=== PATIENT | female | born 1950 | race African-American/Black ===

== ENCOUNTER 2017-09-06 17:07 | Inpatient (IN) | payer OTHER ==
[~2017-09-06] VITALS: Ht 157.5 cm; Wt 55.3 kg
--- NOTE | 2017-09-06 17:38 | ED GI/GU/ABDOMINAL COMPLAINT ---
History of Present Illness General Chief Complaint: Nausea, Vomiting, Diarrhea Stated Complaint: VOMITING X 2DAYS, RIB AND BACK PAIN HX OF FRACTURE Source: patient Exam Limitations: no limitations Vital Signs & Intake/Output Vital Signs & Intake/Output Vital Signs Date Time Temp Pulse Resp B/P B/P Pulse O2 O2 Flow FiO2 Mean Ox Delivery Rate 09/06 2242 88 18 132/78 99 Room Air 09/06 1828 97 Room Air 09/06 1719 98.2 114 16 153/83 98 Room Air Room Air Allergies Coded Allergies: No Known Allergies (09/06/17) Reconcile Medications Multiple Vitamin (Multivitamins) 1 EACH TABLET 1 TAB PO DAILY SUPPLEMENT ( Reported) Pantoprazole Sodium 40 MG TABLET.DR 1 TAB PO DAILY GI (Reported) Triage Note: PT TO TRIAGE WITH BILATERAL RIB AND BACK PAIN WITH N/V FOR 3 DAYS. PT HAS HAD CHILLS, BUT DENIES FEVERS. DENIES TROUBLE WITH URIANTION. DENIES SOB, AND IS IN NO RESPIRATORY TROUBLE. PT IS HOLD RIBS AND ROCKING IN TRIAGE STATING PAIN IS 10/10. PT STATES SHE HAS NOT BEEN ABLE TO HOLD DOWN FLUIDS. PT HAS A HX OF PANCEATITIS Triage Nurses Notes Reviewed? yes ? N Is pt currently ? No Onset: Gradual Duration: constant Timing: recent history Quality/Severity: moderate, stabbing Severity Numbers: 6 Location: generalized abdomen Radiation: chest HPI: Patient is a 67-year-old female with a past medical history of pancreatitis due to alcohol abuse where she states last alcoholic beverage was [place] 4 months ago, and GERD who presents emergency room with concerns of nausea and vomiting for the past 3 days unable tolerating by mouth and has associated symptoms of generalized abdominal pain Patient denies fevers but does have chills denies any chest pain arm pain jaw pain hemoptysis leg swelling dysuria hematuria vaginal bleeding or discharge. Patient does state that approximate one year ago she has a history of rib fractures due to a fall which she had a mechanical fall approximately one month ago worse she's been complaining of bilateral rib pain since. Patient has not had a fall SINCE (Altagracia LOPEZ,[place]) Past History Travel History Traveled to [place] past 21 day No Medical History Any Pertinent Medical History? see below for history Neurological: NONE EENT: NONE Cardiovascular: hypertension, hyperlipidemia Respiratory: NONE Gastrointestinal: pancreatitis Hepatic: NONE Renal: NONE Musculoskeletal: RIB FRACTURE Psychiatric: NONE Endocrine: HIGH ANION GAP METABOLIC ACIDOSIS Blood Disorders: HYPOMAGNESEMIA Cancer(s): NONE FLORIST/Reproductive: NONE Surgical History Surgical History: , tubal ligation Psychosocial History What is your primary language Lao Tobacco Use: Current Daily Use Daily Tobacco Use Amount/Type: => 5 Cigarettes daily ETOH Use: alcoholic Family History Hx Contributory? No (Selwyn Gan) Review of Systems Review of Systems Constitutional: Reports: see HPI, chills. Denies: fever. EENTM: Reports: no symptoms. Respiratory: Reports: see HPI. Denies: cough, short of breath. Cardiovascular: Reports: see HPI, chest pain. GI: Reports: see HPI, abdominal pain, vomiting. Genitourinary: Reports: see HPI. Musculoskeletal: Reports: see HPI, back pain. Skin: Reports: no symptoms. Neurological/Psychological: Reports: no symptoms. Hematologic/Endocrine: Reports: no symptoms. Immunologic/Allergic: Reports: no symptoms. All Other Systems: Reviewed and Negative (Selwyn Gan) Physical Exam Physical Exam General Appearance: alert, awake, anxious, mild distress Head: atraumatic Eyes: Bilateral: normal appearance, PERRL. Ears, Nose, Throat, Mouth: hearing grossly normal Neck: normal inspection, supple, full range of motion Respiratory: normal breath sounds, BILATERAL INTERCOSTAL PAIN UPON PALPATION Cardiovascular: regular rate/rhythm Gastrointestinal: tenderness Neurologic/Psych: no motor/sensory deficits, awake Skin: intact, normal color Core Measures ACS in differential dx? Yes Sepsis Present: No Sepsis Focused Exam Completed? No (Selwyn Gan) Progress Differential Diagnosis: AAA, AMI, appendicitis, biliary colic, bowel obstruction , colon cancer, cholecystitis, diverticulitis, endometritis, esophageal varices, gastritis, hepatitis, hernia, hemorrhoids, ischemic bowel, inflamm bowel dis, kidney stone, Nithya-Alexandro tear, ovarian cyst, ovarian torsion, pancreatitis, PID/cervicitis, peptic ulcer, PUD/GERD, perforated viscous, SBO, UTI/pyelo Plan of Care: Orders Procedure Date/time Status Add-on Test (ER Only) 09/06 233 Active LACTIC ACID 09/06 2032 Complete Add-on Test (ER Only) 09/07 2027 Active Add-on Test (ER Only) 09/06 2005 Active LIPID PANEL 09/06 190 Complete RAPID VIRAL INFLUENZA A 09/06 173 Complete URINE DRUG SCREEN FOR ER ONLY 09/06 173 Complete URINALYSIS 09/06 173 Complete TROPONIN LEVEL 09/06 173 Complete LIPASE 09/06 173 Complete ETHANOL 09/06 173 Complete D-DIMER 09/07 1731 Complete COMPREHENSIVE METABOLIC PANEL 09/07 1731 Complete CBC WITHOUT DIFFERENTIAL 09/07 1731 Complete AMYLASE 09/07 1731 Complete EKG 09/06 172 Active Current Medications Sig/Ella Start time Last Medication Dose Stop Time Status Admin Morphine Sulfate 6 MG ONCE ONE 09/06 2344 UNVr 09/06 (Morphine) 09/06 2345 2347 Laboratory Tests 09/06/178: Urine Opiates Screen 3188.00 H, Methadone Screen < 40, Barbiturate Screen < 60, Ur Phencyclidine Scrn < 6.00, Amphetamines Screen < 100, U Benzodiazepines Scrn < 85, Urine Cocaine Screen < 50, Urine Cannabis Screen < 5.00, Urine Color YEL, Urine Clarity CLEAR, Urine pH 6.5, Ur Specific Wood 1.025, Urine Protein 30 H, Urine Ketones >=80, Urine Nitrite NEG, Urine Bilirubin NEG@ICTO, Urine Urobilinogen 0.2, Ur Leukocyte Esterase NEG, Ur Microscopic SEDIMENT EXAMINED, Urine RBC RARE, Urine WBC 1-3 H, Ur Epithelial Cells MOD H, Urine Bacteria FEW H, Hyaline Casts RARE H, Urine Mucus FEW, Micro UA Comment BUDDING YEAST H, Urine Hemoglobin SMALL H, Urine Glucose NEG 09/06/172056: Lactic Acid 0.9 09/06/17 1902: Anion Gap 31 H, Estimated GFR > 60, BUN/Creatinine Ratio 20.0, Glucose 206 H, Calcium 10.1, Total Bilirubin 1.1, AST 40 H, ALT 19, Alkaline Phosphatase 136 H, Troponin I < 0.01, Total Protein 9.1 H, Albumin 5.2 H, Globulin 3.9, Albumin/Globulin Ratio 1.3, Triglycerides 352 H, Cholesterol 295 H, LDL Cholesterol, Calc 115, HDL Cholesterol 142 H, Cholesterol/HDL Ratio 2.1, Amylase 211 H, Lipase 1858 H, Serum Alcohol < 10.0 09/06/17 1745: D-Dimer High Sensitivty 245 H, CBC w Diff NO MAN DIFF REQ, RBC 4.49, MCV 93.3, MCH 30.8, MCHC 33.0, RDW 15.5 H, MPV 8.4, Gran % 82.5 H, Lymphocytes % 9.4 L, Monocytes % 7.9, Eosinophils % 0.2, Basophils % 0, Absolute Granulocytes 9.0 H, Absolute Lymphocytes 1.0 L, Absolute Monocytes 0.9 H, Absolute Eosinophils 0, Absolute Basophils 0 Microbiology 09/06 1750 NASOPHARYN: Influenza Virus A & B Rapid Smear - COMP Patient upon initial examination was in distress and which she had relief of pain with medications however patient does have concerns after blood work was established of pancreatitis. Patient also has nonspecific ST abnormalities and chest pain on arrival. CT scan currently is pending however patient will be admitted for concerns of EKG abnormalities and pancreatitis. Discussed hand off with Dr. Cintron Initial ED EK BPM,NONSPECIFIC ST ELEVATION IN V3,V4 Hand-Off Endorsed To: Krzysztof Cintron MD Endorsed Time: 2058 Pending: CT (Altagracia LOPEZ,[place]) Diagnostic Imaging: Viewed by Me: CT Scan. Discussed w/RAD: CT Scan. Radiology Impression: PATIENT: NEWTON YOUNG PRESENT AGE: 67 PATIENT ACCOUNT NO: [id number] : 51 LOCATION: [facility] [place] ORDERING PHYSICIAN: Selwyn LOPEZ SERVICE DATE: 09/06/17-2035 EXAM TYPE: CAT - CT ABD & PELVIS W IV CONTRAST; CT CHEST W IV CONTRAST EXAMINATION: CT CHEST, ABDOMEN AND PELVIS CLINICAL INFORMATION: Chest pain, abdominal pain. COMPARISON: None TECHNIQUE: Axial imaging. 94 mL Optiray 320. Sagittal and coronal reconstructions. FINDINGS: CT CHEST: Visualized thyroid gland appears unremarkable. No pathologically enlarged lymph nodes are seen in the mediastinum or carroll. Normal caliber aorta. Normal heart size. No pericardial or pleural effusion. No axillary lymphadenopathy. Trachea and central airways are patent. A 5 mm nodule in the right lower lobe image 24. No focal consolidation. No pneumothorax. CT ABDOMEN: Diffuse low attenuation liver compatible with hepatic steatosis. No focal lesions are seen. Gallbladder, bile ducts, appear unremarkable. Pancreas appears unremarkable without acute inflammatory changes. The spleen, adrenal glands unremarkable. Bilateral kidneys are homogeneous enhancement. No suspicious lesions. No calculi. No hydronephrosis. There is colonic diverticulosis. No findings to suggest diverticulitis. Normal caliber small bowel loops without bowel obstruction. The distal stomach is nondistended limiting evaluation. The appendix is not definitely identified, but no pericecal or right side inflammatory changes are seen. Normal caliber aorta. No pathologically enlarged lymph nodes are seen in the abdomen or pelvis. No mesenteric lymph nodes are seen. Small fat-containing umbilical hernia. Uterus is bulky, containing multiple heterogeneous enhancing foci, probable fibroids. No free fluid or free air. Urinary bladder appears unremarkable. Degenerative changes at L4-L5, L5-S1. Multilevel degenerative changes otherwise in the spine. No suspicious bony lesions identified. IMPRESSION: 1. No focal consolidation in the lungs. 2. There is a 5 mm pulmonary nodule. According to the UPDATED 2017 Fleischner Society recommendations, the advised follow-up imaging for solid nodules < 6 mm is: LOW RISK PATIENT: No routine follow-up. HIGH RISK PATIENT: Optional CT at 12 months. 3. Hepatic steatosis. 4. Colonic diverticulosis without evidence of diverticulitis. 5. No acute process is identified in the abdomen or pelvis. 6. Bulky uterus with fibroids. 7. Degenerative changes in the spine. DICTATED BY: Eyad Mosley MD DATE/TIME DICTATED:09/06/172212 PHOTOLITH OPERATOR:REFUGIO DATE/TIME TRANSCRIBED:09/06/172212 CONFIDENTIAL, DO NOT COPY WITHOUT APPROPRIATE AUTHORIZATION. <Electronically signed in Other Vendor System> SIGNED BY: Eyad Mosley MD 09/06/17 8737 (Saida ATKINSON,Krzysztof Avery) Departure Departure Disposition: STILL A PATIENT Condition: Stable Clinical Impression Primary Impression: Pancreatitis Secondary Impressions: Chest pain, EKG abnormalities Departure Forms: Customer Survey General Discharge Information Admission Note Documentation of Exam: Documentation of any treatments & extenuating circumstances including Concerns Regarding Discharge (functional status, medication knowledge or non-compliance, living conditions, etc.) that warrant an admission rather than observation: [ Patient requires pain medication, antiemetic medication gastroenterology consultation cardiology consultation and repeat labs repeat Cardiac enzymes repeat EKG] (Selwyn Gan) Admission Note Spoke With: Severiano ATKINSON,Stef PA/ACCOUNT MANAGER Co-Sign Statement Statement: ED Attending supervision documentation- [x] I saw and evaluated the patient. I have also reviewed all the pertinent lab results and diagnostic results. I agree with the findings and the plan of care as documented in the PA's/ACCOUNT MANAGER's documentation. 09/06/17, 23:40... pt with medical pancreatitis, lipase 1800, benign ct scan... mid epigastric tenderness... merits supportive measures, iv fluids. [] I have reviewed the ED Record and agree with the PA's/ACCOUNT MANAGER's documentation. [] Additions or exceptions (if any) to the PAs/ACCOUNT MANAGER's note and plan are summarized below: [] (Saida ATKINSON,Krzysztof Avery)
[2017-09-06 18:08] LABS: ABSOLUTE BASOPHIL COUNT 0 /CUMM (0.0-0.2); ABSOLUTE EOSINOPHIL COUNT 0 /CUMM (0.0-0.7); ABSOLUTE MONOCYTE COUNT 0.9 /CUMM (0.10-0.60); BASOPHIL % 0 % (0.0-2.0); EOSINOPHIL % 0.2 % (0-5); MEAN CORPUSCULAR HGB 30.8 PG (27.0-31.0); MEAN CORPUSCULAR VOLUME 93.3 FL (81.0-99.0); MEAN PLATELET VOLUME 8.4 FL (7.4-10.4); PLATELET COUNT 188 /CUMM (130-400); RBC DISTRIBUTION WIDTH 15.5 % (11.5-14.5); RED BLOOD CELL CT 4.49 /CUMM (4.20-5.40); WHITE BLOOD CELL COUNT 10.9 /CUMM (4.8-10.8)
[2017-09-06] MEDS ORDERED: PANTOPRAZOLE SO40 M1 PO (18:58)
[2017-09-06] MEDS ORDERED: MULTIVITAMINS1 EAC9 PO (18:59)
[2017-09-06 19:24] LABS: GRANULOCYTE % 82.5 % (42.2-75.2)
--- NOTE | 2017-09-06 22:53 | CT SCAN REPORT ---
EXAMINATION: CT CHEST, ABDOMEN AND PELVIS CLINICAL INFORMATION: Chest pain, abdominal pain. COMPARISON: None TECHNIQUE: Axial imaging. 94 mL Optiray 320. Sagittal and coronal reconstructions. FINDINGS: CT CHEST: Visualized thyroid gland appears unremarkable. No pathologically enlarged lymph nodes are seen in the mediastinum or carroll. Normal caliber aorta. Normal heart size. No pericardial or pleural effusion. No axillary lymphadenopathy. Trachea and central airways are patent. A 5 mm nodule in the right lower lobe image 24. No focal consolidation. No pneumothorax. CT ABDOMEN: Diffuse low attenuation liver compatible with hepatic steatosis. No focal lesions are seen. Gallbladder, bile ducts, appear unremarkable. Pancreas appears unremarkable without acute inflammatory changes. The spleen, adrenal glands unremarkable. Bilateral kidneys are homogeneous enhancement. No suspicious lesions. No calculi. No hydronephrosis. There is colonic diverticulosis. No findings to suggest diverticulitis. Normal caliber small bowel loops without bowel obstruction. The distal stomach is nondistended limiting evaluation. The appendix is not definitely identified, but no pericecal or right side inflammatory changes are seen. Normal caliber aorta. No pathologically enlarged lymph nodes are seen in the abdomen or pelvis. No mesenteric lymph nodes are seen. Small fat-containing umbilical hernia. Uterus is bulky, containing multiple heterogeneous enhancing foci, probable fibroids. No free fluid or free air. Urinary bladder appears unremarkable. Degenerative changes at L4-L5, L5-S1. Multilevel degenerative changes otherwise in the spine. No suspicious bony lesions identified. IMPRESSION: 1. No focal consolidation in the lungs. 2. There is a 5 mm pulmonary nodule. According to the UPDATED 2017 Fleischner Society recommendations, the advised follow-up imaging for solid nodules < 6 mm is: LOW RISK PATIENT: No routine follow-up. HIGH RISK PATIENT: Optional CT at 12 months. 3. Hepatic steatosis. 4. Colonic diverticulosis without evidence of diverticulitis. 5. No acute process is identified in the abdomen or pelvis. 6. Bulky uterus with fibroids. 7. Degenerative changes in the spine.
--- NOTE | 2017-09-07 00:53 | History & Physical ---
Jose Chavarria MD 09/07/17 0052: General Information and HPI MD Statement: I have seen and personally examined NEWTON YOUNG and documented this H&P. The patient is a 67 year old F who presented with a patient stated chief complaint of [abdominal pain, nausea, vomiting]. Source of Information: patient Exam Limitations: no limitations History of Present Illness: Patient is a 67-year-old female with a PMH significant for HTN, HLD, for acute pancreatitis approximately one year ago, GERD, alcohol use disorder last drink to significantly in September 2016 admitted to drinking on 2016 as well, who presents to [facility] ED complaining of severe abdominal pain, nausea, vomiting. Patient was in her usual state of health until about 4 days ago when she suffered a mechanical fall at her home which caused pain in her left-sided ribs. 3 days prior to admission she began noting significant cramping abdominal pain in the epigastric area radiating to her back. She is also unable to tolerate any by mouth intake including water, 6 episodes of emesis daily. The day of admission she noted 2 episodes of bloody emesis, approximately 2 tablespoons of bright red blood. She then proceeded to have regular bilious emesis with no repeat episodes of hematemesis. She rates her abdominal pain and 9/10, was relieved by morphine received in the ED. She also reports mild dysphagia, being unable to swallow a pill of tylenol over the past few days. She denies any diarrhea, melena or bloody bowel movements. The rest of review of systems as below. Allergies/Medications Allergies: Coded Allergies: No Known Allergies (09/06/17) Home Med list Multiple Vitamin (Multivitamins) 1 EACH TABLET 1 TAB PO DAILY SUPPLEMENT ( Reported) Pantoprazole Sodium 40 MG TABLET. 1 TAB PO DAILY GI (Reported) Past History Travel History Traveled to [place] past 21 day No Medical History Neurological: NONE EENT: NONE Cardiovascular: hypertension, hyperlipidemia Respiratory: NONE Gastrointestinal: pancreatitis Hepatic: NONE Renal: NONE Musculoskeletal: RIB FRACTURE Psychiatric: NONE Endocrine: HIGH ANION GAP METABOLIC ACIDOSIS Blood Disorders: HYPOMAGNESEMIA Cancer(s): NONE TUB CHUCKER/Reproductive: NONE Surgical History Surgical History: , tubal ligation Past Family/Social History Family History Relations & Conditions if any MOTHER FHx: stroke FATHER FHx: stroke Psychosocial History Where do you live? Home Who Do You Live With? self Services at Home: None Primary Language: Sami Smoking Status: Current Everyday Smoker (25 pack year hx) ETOH Use: former heavy use Illicit Drug Use: denies illicit drug use Functional Ability ADLs Independent: dressing, eating, toileting, bathing. Ambulation: independent Review of Systems Review of Systems Constitutional: Reports: malaise, weakness. Denies: chills, fever. EENTM: Reports: no symptoms. Cardiovascular: Reports: chest pain (secondary to fall). Denies: palpitations, syncope. Respiratory: Denies: cough, short of breath. GI: Reports: abdominal pain, nausea, vomiting. Denies: bloating, constipation, diarrhea, distention, bloody stool. Genitourinary: Reports: no symptoms. Musculoskeletal: Reports: back pain. Skin: Reports: no symptoms. Neurological/Psychological: Reports: headache. Hematologic/Endocrine: Reports: no symptoms. Exam & Diagnostic Data Last 24 Hrs of Vital Signs/I&O Vital Signs Date Time Temp Pulse Resp B/P B/P Pulse O2 O2 Flow FiO2 Mean Ox Delivery Rate 09/07 0256 97.6 91 24 158/82 97 Room Air 09/07 0215 98.0 80 20 127/86 98 Room Air 09/06 2242 88 18 132/78 99 Room Air 09/06 1828 97 Room Air 09/06 1719 98.2 114 16 153/83 98 Room Air Room Air Intake & Output 09/07 0800 09/07 0000 09/06 1600 Intake Total 1000 Output Total Balance 1000 Intake, IV 1000 Patient 122 lb 122 lb Weight Physical Exam General Appearance Alert, Oriented X3, Cooperative, Moderate Distress Skin Temp/Moisture Exam: Warm/Dry Sepsis Skin Exam (color): Normal for Ethnicity HEENT Atraumatic, PERRLA, EOMI Cardiovascular Regular Rate, Normal S1, Normal S2 Lungs Clear to Auscultation, Normal Air Movement Abdomen Normal Bowel Sounds, diffusely tender to palpation, no guarding or rigidity, multiple areas of post inflammatory hyperpigmentation on the abdomen Neurological Normal Speech, Strength at 5/5 X4 Ext, Sensation Intact, Cranial Nerves 3-12 NL Extremities No Clubbing, No Cyanosis, No Edema Last 24 Hrs of Labs/Emery: Laboratory Tests 09/07/17 0240: Anion Gap 21 H, Estimated GFR > 60, BUN/Creatinine Ratio 20.0 09/06/172127: Urine Opiates Screen 3188.00 H, Methadone Screen < 40, Barbiturate Screen < 60, Ur Phencyclidine Scrn < 6.00, Amphetamines Screen < 100, U Benzodiazepines Scrn < 85, Urine Cocaine Screen < 50, Urine Cannabis Screen < 5.00, Urine Color YEL, Urine Clarity CLEAR, Urine pH 6.5, Ur Specific [place] 1.025, Urine Protein 30 H, Urine Ketones >=80, Urine Nitrite NEG, Urine Bilirubin NEG@ICTO, Urine Urobilinogen 0.2, Ur Leukocyte Esterase NEG, Ur Microscopic SEDIMENT EXAMINED, Urine RBC RARE, Urine WBC 1-3 H, Ur Epithelial Cells MOD H, Urine Bacteria FEW H, Hyaline Casts RARE H, Urine Mucus FEW, Micro UA Comment BUDDING YEAST H, Urine Hemoglobin SMALL H, Urine Glucose NEG 09/06/172056: Lactic Acid 0.9 09/06/171901: Anion Gap 31 H, Estimated GFR > 60, BUN/Creatinine Ratio 20.0, Glucose 206 H, Serum Osmolality 325 H, Calcium 10.1, Total Bilirubin 1.1, AST 40 H, ALT 19, Alkaline Phosphatase 136 H, Troponin I < 0.01, Total Protein 9.1 H, Albumin 5.2 H, Globulin 3.9, Albumin/Globulin Ratio 1.3, Triglycerides 352 H, Cholesterol 295 H, LDL Cholesterol, Calc 115, HDL Cholesterol 142 H, Cholesterol/HDL Ratio 2.1, Amylase 211 H, Lipase 1858 H, Serum Alcohol < 10.0 09/06/17 1745: D-Dimer High Sensitivty 245 H, CBC w Diff NO MAN DIFF REQ, RBC 4.49, MCV 93.3, MCH 30.8, MCHC 33.0, RDW 15.5 H, MPV 8.4, Gran % 82.5 H, Lymphocytes % 9.4 L, Monocytes % 7.9, Eosinophils % 0.2, Basophils % 0, Absolute Granulocytes 9.0 H, Absolute Lymphocytes 1.0 L, Absolute Monocytes 0.9 H, Absolute Eosinophils 0, Absolute Basophils 0 Microbiology 09/06 1750 NASOPHARYN: Influenza Virus A & B Rapid Smear - COMP Diagnostic Data EKG Results NSR HR 90, QTc [address] CHEST: Visualized thyroid gland appears unremarkable. No pathologically enlarged lymph nodes are seen in the mediastinum or carroll. Normal caliber aorta. Normal heart size. No pericardial or pleural effusion. No axillary lymphadenopathy. Trachea and central airways are patent. A 5 mm nodule in the right lower lobe image 24. No focal consolidation. No pneumothorax. CT ABDOMEN: Diffuse low attenuation liver compatible with hepatic steatosis. No focal lesions are seen. Gallbladder, bile ducts, appear unremarkable. Pancreas appears unremarkable without acute inflammatory changes. The spleen, adrenal glands unremarkable. Bilateral kidneys are homogeneous enhancement. No suspicious lesions. No calculi. No hydronephrosis. There is colonic diverticulosis. No findings to suggest diverticulitis. Normal caliber small bowel loops without bowel obstruction. The distal stomach is nondistended limiting evaluation. The appendix is not definitely identified, but no pericecal or right side inflammatory changes are seen. Normal caliber aorta. No pathologically enlarged lymph nodes are seen in the abdomen or pelvis. No mesenteric lymph nodes are seen. Small fat-containing umbilical hernia. Uterus is bulky, containing multiple heterogeneous enhancing foci, probable fibroids. No free fluid or free air. Urinary bladder appears unremarkable. Degenerative changes at L4-L5, L5-S1. Multilevel degenerative changes otherwise in the spine. No suspicious bony lesions identified. IMPRESSION: 1. No focal consolidation in the lungs. 2. There is a 5 mm pulmonary nodule. According to the UPDATED 2017 Fleischner Society recommendations, the advised follow-up imaging for solid nodules < 6 mm is: LOW RISK PATIENT: No routine follow-up. HIGH RISK PATIENT: Optional CT at 12 months. 3. Hepatic steatosis. 4. Colonic diverticulosis without evidence of diverticulitis. 5. No acute process is identified in the abdomen or pelvis. 6. Bulky uterus with fibroids. 7. Degenerative changes in the spine. Assessment/Plan Assessment: Patient is a 67-year-old female with a PMH significant for HTN, HLD, for acute pancreatitis approximately one year ago, GERD, alcohol use disorder last drink to significantly in September 2016 admitted to drinking on 2016 as well, who presents to [facility] ED complaining of severe abdominal pain, nausea, vomiting. CT abdomen pelvis with no abnormalities of the pancreas, hepatic steatosis. Patient has severe abdominal pain nausea and vomiting and elevated lipase and amylase with elevated anion gap acidosis, normal lactic acid. Vital signs on admission: T 98.2, P114, RR 16, BP 130/83, saturating 98% on room air Labs on admission: Sodium 140, CO2 11, glucose 26, serum osmolality 325, corrected anion gap 29, AST 40, alkaline phosphatase 136, total protein of only, albumin 5.2, triglycerides 352, cholesterol 295, amylase 211, lipase 1858, UA: negative for ketones, WBC 1-3, moderate epithelial cells, few bacteria, rare hyaline cast, budding yeast, small hemoglobin Problem list #Acute pancreatitis, BISAP score 1 (age) #Elevated anion gap metabolic acidosis #Hyperlipidemia Plan -Admit to general medicine -Keep nothing by mouth -Aggressive fluid rehydration with lactated Ringer's at 250 ML/hour -Adequate pain management with morphine, IV Tylenol, and gabapentin, consider pain management consult if pain continues to be difficult to control -Follow-up ABG -Continue home PPI -consider swallow eval when she is able to tolerate a diet if she continues to have dysphagia Diet: Nothing by mouth DVT prophylaxis: Subcutaneous heparin, alps CODE STATUS: Full code As Ranked By This Provider Problem List: 1. Pancreatitis Core Measures/Misc (02/22) Acute Coronary Syndrome ACS Diagnosis: No Congestive Heart Failure Congestive Heart Failure Diagnosis No Cerebrovascular Accident CVA/TIA Diagnosis: No VTE (View Protocol) VTE Risk Factors Smoker No Mechanical VTE Prophylaxis d/t N/A MechProphylax Ordered No VTE Pharm Prophylaxis d/t NA PharmProphylax ordered Sepsis (View protocol) Sepsis Present: No Jeannine Piña 09/07/17 0220: Resident Review Statement Resident Statement: examined this patient, discussed with advertising internship, agreed with advertising internship, reviewed EMR data (avail), reviewed images Other Findings: 67-year-old woman, recently moved from [place], current smoker past medical history significant for alcohol abuse, history of acute pancreatitis about a year ago, history of fall 2 weeks ago, coming in for evaluation of nausea vomiting and abdominal pain of 3 days' duration. Abdominal pain is colicky and is bandlike and is radiating to her back bilaterally. Severe today is like 10/10. Associated with up to 10 episodes of vomiting and decreased by mouth intake. Yesterday afternoon she had 2 episodes with minimal blood. Endorses difficulty swallowing pills. Denies fever, chills, shortness of breath, chest pain, diarrhea, constipation, urinary symptoms, gallstones, weight loss or polysubstance abuse. Her last drink was in May. Vitals temperature 98.2, heart rate 114, respiratory rate 16, blood pressure 153 /83, saturating 90% on room air On examination she is visibly uncomfortable, minimal dehydration noted, CVS: S1- S2, respiratory: clear to auscultation, abdomen: distended severe pain to med mild palpation, no peripheral edema. Labs: Done recently 10.9, hemoglobin 13.8, hematocrit 42.0, platelet 188, sodium 148, potassium 4.3, chloride 105, bicarbonate 11, the 114, creatinine 0.7, anion gap 31, d-dimer 245, glucose 206, lactic acid 0.9, calcium 10.1, AST 40, ALT 19, ALP 136, troponin 0.01, triglycerides shoe total cholesterol 295, amylase 211, lipase 1858, UA shows proteinuria with budding yeast, tox significant for opiates CT ABD & PELVIS W IV CONTRAST; CT CHEST W IV CONTRAST IMPRESSION: 1. No focal consolidation in the lungs. 2. There is a 5 mm pulmonary nodule. According to the UPDATED 2017 Fleischner Society recommendations, the advised follow-up imaging for solid nodules < 6 mm is: LOW RISK PATIENT: No routine follow-up. HIGH RISK PATIENT: Optional CT at 12 months. 3. Hepatic steatosis. 4. Colonic diverticulosis without evidence of diverticulitis. 5. No acute process is identified in the abdomen or pelvis. 6. Bulky uterus with fibroids. 7. Degenerative changes in the spine. Assessment and plan: Elevated lipase and abdominal likely mild acute on chronic pancreatitis in the background of alcohol abuse. BISAP score 1Unclear etiology over elevated anion gap metabolic acidosis, as we expect her to have more of an alkalotic picture secondary to her vomiting. Normal lactic acid, no history of diarrhea and no ketonemia to suggest DKA or starvation ketoacidosis. Serum osmolar gap of 13. Per Winter's formula expected compensation is 22.5-26.5, given measured pCO2 is 31 ? primary respiratory acidosis secondary to obstructed airway Problem list: Acute on chronic Pancreatitis (BISAP score 1) Elevated anion gap metabolic acidosis with underlying respiratory acidosis Mild hypernatremia Hyperlipidemia dysphagia Plan: Admit to general medicine floor, keep nothing by mouth, vitals per protocol Continue with Ringer lactate at 250 mL IV PPI Pain control with gabapentin start at 100 mg 3 times a day and titrate upwards as tolerated, IV Tylenol and IV morphine 4 mg every 4 for breakthrough severe pain, some pain seeking behavior noted. Pain management consult. Follow-up morning labs Consider swallow eval once diet is advanced. DVT prophylaxis with subcutaneous heparin Full code Patient has recently moved from [place], will need to be referred to a PCP for continuity care. Stef العلي MD 09/07/17 0425: Attending MD Review Statement Attending Statement Attending MD Statement: examined this patient, discuss w/resident/PA/[employer]SULTANT [employer]NSH[employer], agreed w/resident/PA/[employer], reviewed EMR data (avail) Attending Assessment/Plan: Ms. Young is a 67 y/o female with a history of pancreatitis, current smoker, history of alcohol abuse, apparently has stopped drinking last May, history of fall about couple of weeks ago comes in with complaints of nausea and unable to keep food down with abdominal pain of 2-3 days duration On examination blood pressure 153/83 heart rate of 114, respiratory rate of 16 and saturating 90% on room air. Alert and oriented 3 in no acute distress, oral cavity dry, cardiovascular and respiratory examination unremarkable, abdomen mildly distended diffuse tenderness all over, bowel sounds heard. No focal neurological deficit identified Assessement 1. Acute on chronic pancreatitis 2. History of alcohol abuse 3. Elevated Anion gap metabolic acidosis 4. Dyslipidemia Plan Keep nothing by mouth, IV antiemetics. Continue with IV fluid resuscitation Ringer Lactate at 150 mL an hour after initial rescucitation with 250 cc an hour for 2 liters Patient appears to be mimicking the pain and use more pain medications than necessary. Received 10 mg of morphine and a short duration. Can consider pain management consult Obtain ABG to ascertain the compensation Tylenol IV and Morphine for breakthrough pain Initiate Gabapentin 100 mg TID DVT Prophylaxis with Heparin SC
[2017-09-07 02:56] VITALS: BP 158/82
[2017-09-07 06:20] VITALS: BP 160/80
[2017-09-07 06:35] VITALS: BP 168/84
--- NOTE | 2017-09-07 07:20 | PN- Housestaff ---
See Addendum Subjective Follow-up For: Acute Pancreatitis Subjective: Ms. Santoro was seen and examined this morning. She is resting comfortably in bed. During our initial encounter the patient endorsed abdominal pain rated at a 6 out of 10 in severity. Described as dull radiating to the back. She also reported multiple episodes of eructation and requests us to give her a medication for relief. She denies any fever, chills, nausea, vomiting. States that she feels better compared to her initial presentation clinical condition. Review of Systems Constitutional: Reports: see HPI. Objective Last 24 Hrs of Vital Signs/I&O Vital Signs Date Time Temp Pulse Resp B/P B/P Pulse O2 O2 Flow FiO2 Mean Ox Delivery Rate 09/07 0635 168/84 09/07 0620 98.0 84 20 160/80 97 09/07 0256 97.6 91 24 158/82 97 Room Air 09/07 0215 98.0 80 20 127/86 98 Room Air 09/06 2242 88 18 132/78 99 Room Air 09/06 1828 97 Room Air 09/06 1719 98.2 114 16 153/83 98 Room Air Room Air Intake & Output 09/07 1600 09/07 0800 09/07 0000 Intake Total 760 1000 Output Total Balance 760 1000 Intake, IV 700 1000 Intake, Oral 60 Patient 55.338 kg 55.338 kg Weight Physical Exam General Appearance: Alert, Oriented X3, Cooperative Cardiovascular: Regular Rate, Normal S1, Normal S2 Lungs: Clear to Auscultation, Normal Air Movement Abdomen: Normal Bowel Sounds, Soft, Tenderness noted in the epigastric area. Tenderness noted with light touch to left shoulder/Back Neurological: Normal Gait, Normal Speech Extremities: No Cyanosis, No Edema Vascular: Normal Pulses Assessment/Plan Assessment: Ms Santoro is a 67-year-old female with a PMH significant for HTN, HLD, for acute pancreatitis approximately one year ago, GERD, alcohol use disorder last drink to significantly in September 2016 admitted to drinking on 2016 as well, who presented to [facility] ED complaining of severe abdominal pain, nausea, vomiting. CT abdomen pelvis with no abnormalities of the pancreas, hepatic steatosis. Patient had severe abdominal pain nausea and vomiting and elevated lipase and amylase with elevated anion gap acidosis, normal lactic acid. Vital signs on admission: T 98.2, P114, RR 16, BP 130/83, saturating 98% on room air Labs on admission: Sodium 140, CO2 11, glucose 26, serum osmolality 325, corrected anion gap 29, AST 40, alkaline phosphatase 136, total protein of only, albumin 5.2, triglycerides 352, cholesterol 295, amylase 211, lipase 1858, UA: negative for ketones, WBC 1-3, moderate epithelial cells, few bacteria, rare hyaline cast, budding yeast, small hemoglobin Problem list #Acute pancreatitis, BISAP score 1 (age) #Elecated AG Metabolic Acidosis #Hyperlipidemia #Hypokalemia Plan -Continue on general medicine -Aggressive fluid rehydration with lactated Ringer's at 250 ML/hour, may titrate down based on PO intake. -Adequate pain management with morphine, IV Tylenol, and gabapentin, consider pain management consult if pain continues to be difficult to control -Continue home PPI -Hyoscyamine for symptomatic relief -May consider social work consultation -Will need outpatient referral to a provider at the time of discharge. Diet: Clear Liquids, and screen within normal limits. Formal swallow evaluation results to follow. DVT prophylaxis: Subcutaneous heparin, alps CODE STATUS: Full code Problem List: 1. Pancreatitis Pain Ratin Pain Location: Epigastric Region Pain Goal: Remain pain free Pain Plan: Morphine and Tylenol Tomorrow's Labs & Rationales: No labs needed
[2017-09-07 08:19] LABS: ABSOLUTE BASOPHIL COUNT 0 /CUMM (0.0-0.2); ABSOLUTE EOSINOPHIL COUNT 0.1 /CUMM (0.0-0.7); MEAN PLATELET VOLUME 7.4 FL (7.4-10.4); RBC DISTRIBUTION WIDTH 14.6 % (11.5-14.5)
[2017-09-07 08:26] LABS: ABSOLUTE GRANULOCYTE CT 5.2 /CUMM (1.4-6.5); ABSOLUTE LYMPH COUNT 1.5 /CUMM (1.2-3.4); ABSOLUTE MONOCYTE COUNT 0.6 /CUMM (0.10-0.60); BASOPHIL % 0.1 % (0.0-2.0); EOSINOPHIL % 1.3 % (0-5); GRANULOCYTE % 69.7 % (42.2-75.2); MEAN CORPUSCULAR HGB 31.5 PG (27.0-31.0); MEAN CORPUSCULAR VOLUME 92.4 FL (81.0-99.0); PLATELET COUNT 146 /CUMM (130-400); RED BLOOD CELL CT 3.94 /CUMM (4.20-5.40); WHITE BLOOD CELL COUNT 7.4 /CUMM (4.8-10.8)
[2017-09-07 08:27] LABS: HEMATOCRIT 36.4 % (37-47)
[2017-09-07 15:12] VITALS: BP 140/60
[2017-09-07 21:57] VITALS: BP 146/80
[2017-09-08 06:46] VITALS: BP 128/62
--- NOTE | 2017-09-08 07:15 | PN- Housestaff ---
Adry ATKINSON,[facility] 09/08/17 0715: Subjective Follow-up For: Pancreatitis Subjective: Ms. Santoro was seen and examined this morning. She is resting comfortably in bed. Denies any issues overnight. States that she is able to get some rest. Abdominal pain is better controlled. Abdolutely no flank/shoulder pain. She has been tolerating PO Intake well and is interested in having some solid food notably toast. She denies any fever, chills, nausea, vomiting. Review of Systems Constitutional: Reports: see HPI. Objective Last 24 Hrs of Vital Signs/I&O Vital Signs Date Time Temp Pulse Resp B/P B/P Pulse O2 O2 Flow FiO2 Mean Ox Delivery Rate 09/08 1440 99.1 94 20 124/70 97 Room Air 09/08 0646 99.0 82 20 128/62 96 Room Air 09/07 2157 98.5 73 22 146/80 98 Room Air 09/07 1512 97.9 73 20 140/60 96 Room Air Intake & Output 09/08 1600 09/08 0800 09/08 0000 Intake Total 860 415 0094 Output Total Balance 908 060 0954 Intake, IV 20 430 Intake, Oral 820 120 720 Number 0 0 Bowel Movements Physical Exam General Appearance: Alert, Oriented X3, Cooperative Cardiovascular: Regular Rate, Normal S1, Normal S2 Lungs: Clear to Auscultation Abdomen: Normal Bowel Sounds, Soft, No Tenderness, Mild Tenderness noted on epigastric area Neurological: Normal Speech Extremities: No Cyanosis, No Edema, Normal Pulses Vascular: Normal Pulses Current Medications: Current Medications Sig/Ella Start time Last Medication Dose Route Stop Time Status Admin Acetaminophen 1,000 MG Q6H 09/07 0245 DC 09/07 N/A 1 UNIT IV 09/07 2058 211 Gabapentin 100 MG Q8 09/07 0600 DC PO Heparin Sodium 5,000 UNIT Q8 09/07 0600 AC 09/08 (Porcine) SC 1300 Hyoscyamine 0.125 MG Q4 HRS NEEDED PRN 09/07 0915 AC 09/07 PO 2146 Lactated Ringer's 1,000 ML .Q10H 09/07 1330 DC 09/07 IV 09/07 2329 1342 Morphine Sulfate 4 MG Q4P PRN 09/07 0345 DC 09/08 IV 0627 Multivitamins 1 TAB DAILY 09/07 1000 AC 09/08 Therapeutic PO 0822 Omeprazole 40 MG DAILY AC 09/08 0854 AC PO Ondansetron HCl 4 MG ONCE ONE 09/08 0815 DC 09/08 PO 09/08 0816 0822 Oxycodone/ 1 TAB Q4P PRN 09/08 0900 AC 09/08 Acetaminophen PO 1130 Pantoprazole Sodium 40 MG DAILY 09/07 1000 DC 09/08 IV 0822 Assessment/Plan Assessment: Ms Santoro is a 67-year-old female with a PMH significant for HTN, HLD, for acute pancreatitis approximately one year ago, GERD, alcohol use disorder last drink to significantly in September 2016 admitted to drinking on 2016 as well, who presented [facility] ED complaining of severe abdominal pain, nausea, vomiting. CT abdomen pelvis with no abnormalities of the pancreas, hepatic steatosis. Patient had severe abdominal pain nausea and vomiting and elevated lipase and amylase with elevated anion gap acidosis, normal lactic acid. Vital signs on admission: T 98.2, P114, RR 16, BP 130/83, saturating 98% on room air Labs on admission: Sodium 140, CO2 11, glucose 26, serum osmolality 325, corrected anion gap 29, AST 40, alkaline phosphatase 136, total protein of only, albumin 5.2, triglycerides 352, cholesterol 295, amylase 211, lipase 1858, UA: negative for ketones, WBC 1-3, moderate epithelial cells, few bacteria, rare hyaline cast, budding yeast, small hemoglobin Problem list #Acute pancreatitis, BISAP score 1 (age) #Elecated AG Metabolic Acidosis #Hyperlipidemia #Hypokalemia Plan -Continue on general medicine -Adequate pain management: may convert to Percocet, may consider IV morphine for breakthrough. DC gabapentin. -Continue home PPI -Hyoscyamine for symptomatic relief -Will need outpatient referral to a provider at the time of discharge. -Dc Planning Diet: Clear Liquids, and screen within normal limits. Formal swallow evaluation results to follow. DVT prophylaxis: Subcutaneous heparin, alps CODE STATUS: Full code Problem List: 1. Pancreatitis Pain Ratin Pain Location: Epigastric Area Pain Goal: Remain pain free Pain Plan: Percocet Tomorrow's Labs & Rationales: No Labs - Likely can DC Donny Cerna MD 09/08/17 1128: Attending Review Statement Attending Statement Attending MD Statement: examined this patient, discuss w/resident/PA/RUBBER [employer]ER, agreed w/resident/PA/RUBBER LINER, reviewed EMR data (avail), discussed with nursing, discussed with case mgmt, amended to note Attending Assessment/Plan: The patient was seen and discussed with house staff, nursing, and case management. Abdominal pain continues to improve. No further vomiting. CTPMP checked and the patient has no record of narcotic use. Previous PCP was in [facility]. Tolerating clear liquids and advancing to some solids (ate toast/ oatmeal this morning). Will attempt to transition to po Percocet. Continue to follow pain and GI symptoms.
[2017-09-08 14:40] VITALS: BP 124/70
--- NOTE | 2017-09-08 14:52 | Discharge Summary ---
Visit Information Visit Dates Admission Date: 09/07/17 Discharge Date: 09/10/17 Hospital Course Course Attending Physician: Donny Cerna MD Primary Care Physician: Patient Has No Primary Care Dr Hospital Course: Ms Santoro is a 67-year-old female with a PMH significant for HTN, HLD, for acute pancreatitis approximately one year ago, GERD, alcohol use disorder last drink to significantly in September 2016 admitted to drinking on 2016 as well, who presented to [facility] ED complaining of severe abdominal pain, nausea, vomiting. Vital signs on admission: T 98.2, P114, RR 16, BP 130/83, saturating 98% on room air Labs on admission: Sodium 140, CO2 11, glucose 26, serum osmolality 325, corrected anion gap 29, AST 40, alkaline phosphatase 136, total protein of only, albumin 5.2, triglycerides 352, cholesterol 295, amylase 211, lipase 1858, UA: negative for ketones, WBC 1-3, moderate epithelial cells, few bacteria, rare hyaline cast, budding yeast, small hemoglobin. She was admitted from a general medical service and below is a summary of the care she received her us. Problem list #Acute pancreatitis, BISAP score 1 (age) #Elecated AG Metabolic Acidosis #Hyperlipidemia Patient was initially kept nothing by mouth until her symptoms improved. She was aggressively hydrated with lactated Ringer's. She also complained of eructation and was given Levsin which she reported significant relief. The pain was controlled with a combination of IV morphine and a trial dose of gabapentin (which she did not tolerate well). When she was able to tolerate by mouth intake was switched over to Percocet. A PPI was continued and she was given a renewed prescription for this medication to be continued as an outpatient. She may benefit from being prescribed a statin or lipid-lowering medications.We will defer this to the PCP. CT DESTINATION SPECIALIST was also checked prior to prescribing long-term opioids. Since the patient had just moved to the area from [place] she was given a recommendation to follow-up with her primary care physician in [place]. Patient was maintained on subcutaneous heparin and ALPS for DVT prophylaxis. Initially the patient was kept nothing by mouth and started on a clear liquid diet and after she was able to tolerate this diet this was subsequently advanced to include more solids. She was a full code during this admission. Allergies: Coded Allergies: No Known Allergies (09/06/17) Pertinent Lab Results: Triglycerides 352. Cholesterol 295. LDL 115. HDL 142. Lipase at the time of admission 1858. SERVICE DATE: 09/06/17 EXAM TYPE: CAT - CT ABD & PELVIS W IV CONTRAST; CT CHEST W IV CONTRAST EXAMINATION: CT CHEST, ABDOMEN AND PELVIS CLINICAL INFORMATION: Chest pain, abdominal pain. COMPARISON: None TECHNIQUE: Axial imaging. 94 mL Optiray 320. Sagittal and coronal reconstructions. FINDINGS: CT CHEST: Visualized thyroid gland appears unremarkable. No pathologically enlarged lymph nodes are seen in the mediastinum or carroll. Normal caliber aorta. Normal heart size. No pericardial or pleural effusion. No axillary lymphadenopathy. Trachea and central airways are patent. A 5 mm nodule in the right lower lobe image 24. No focal consolidation. No pneumothorax. CT ABDOMEN: Diffuse low attenuation liver compatible with hepatic steatosis. No focal lesions are seen. Gallbladder, bile ducts, appear unremarkable. Pancreas appears unremarkable without acute inflammatory changes. The spleen, adrenal glands unremarkable. Bilateral kidneys are homogeneous enhancement. No suspicious lesions. No calculi. No hydronephrosis. There is colonic diverticulosis. No findings to suggest diverticulitis. Normal caliber small bowel loops without bowel obstruction. The distal stomach is nondistended limiting evaluation. The appendix is not definitely identified, but no pericecal or right side inflammatory changes are seen. Normal caliber aorta. No pathologically enlarged lymph nodes are seen in the abdomen or pelvis. No mesenteric lymph nodes are seen. Small fat-containing umbilical hernia. Uterus is bulky, containing multiple heterogeneous enhancing foci, probable fibroids. No free fluid or free air. Urinary bladder appears unremarkable. Degenerative changes at L4-L5, L5-S1. Multilevel degenerative changes otherwise in the spine. No suspicious bony lesions identified. IMPRESSION: 1. No focal consolidation in the lungs. 2. There is a 5 mm pulmonary nodule. According to the UPDATED 2017 Fleischner Society recommendations, the advised follow-up imaging for solid nodules < 6 mm is: LOW RISK PATIENT: No routine follow-up. HIGH RISK PATIENT: Optional CT at 12 months. 3. Hepatic steatosis. 4. Colonic diverticulosis without evidence of diverticulitis. 5. No acute process is identified in the abdomen or pelvis. 6. Bulky uterus with fibroids. 7. Degenerative changes in the spine. DICTATED BY: Dimitri ATKINSONEyad Disposition Summary Disposition Principal Diagnosis: #Acute pancreatitis, BISAP score 1 (age) Additional Diagnosis: Elecated AG Metabolic Acidosis Hyperlipidemia Hypokalemia Discharge Disposition: home or self care Discharge Instructions General Discharge Information Code Status: Full Code Patient's Diet: Heart healthy Patient's Activity: As Tolerated Follow-Up Instructions/Appts: Follow-up with her primary care physician within 7 days. We have provide your referral. Please avoid drinking alcohol. Should you re-experience your symptoms, patient return to the emergency department. Medications at Discharge Discharge Medications: Continue taking these medications: Multiple Vitamin (Multivitamins) 1 EACH TABLET 1 Tablet ORAL DAILY Comments: Last Taken:09/10/17 Time:09:41 Start taking the following new medications: Hyoscyamine (Levsin) 0.5 MG/ML AMPUL 0.125 Milligram ORAL EVERY 4 HOURS NEEDED as needed for GI UPSET Qty = 15 No Refills Instructions: . Comments: Last Taken:09/09/17 Time:21:32 Oxycodone HCl/Acetaminophen (Percocet 5-325 MG Tablet) 5 MG-325 MG TABLET 1 Tablet ORAL EVERY 12 HOURS as needed for Abdominal pain Qty = 10 No Refills Comments: Last Taken:09/10/17 Time:01:54 2 TABS GIVEN The following medications have been changed: Old: Pantoprazole Sodium (Pantoprazole Sodium) 40 MG TABLET. 1 Tablet ORAL DAILY Qty = 30 New: Pantoprazole Sodium (Pantoprazole Sodium) 40 MG TABLET.DR 1 Tablet ORAL DAILY Qty = 30 Instructions: . Comments: Last Taken:09/10/17 Time:05:16 OMEPRAZOLE GIVEN Copies To: Oksana ATKINSON,Oksana Attending Review Statement Documenting Attending: Donny Cerna MD Other Findings: The patient was seen and discussed with house staff. OK to discharge today with patient to establish care at Dr. Gandhi's office as PCP.
--- NOTE | 2017-09-08 14:54 | Patient Discharge Instructions ---
Discharge Instructions General Discharge Information You were seen/treated for: Acute Pancreatitis Special Instructions: Follow-up with her primary care physician within 7 days. We have provide your referral. Please avoid drinking alcohol. Should you re-experience your symptoms, patient return to the emergency department. Please follow up with Dr Gandhi. We scheduled you a outpatient appointment on at 10.15 am. Please arrive a few minutes prior to fill out paper work. Thank you. Diet Continue normal diet: Yes Activity Activity Self Limited: Yes (As Tolerated ) Acute Coronary Syndrome Inclusion Criteria At DC or during hospital stay patient has or had the following: ACS DIAGNOSIS No Discharge Core Measures Meds if any: Prescribed or Continued at Discharge Meds if any: NOT Prescribed or Continued at Discharge Congestive Heart Failure Inclusion Criteria At DC or during hospital stay patient has or had the following: CHF DIAGNOSIS No Discharge Core Measures Meds if any: Prescribed or Continued at Discharge Meds if any: NOT Prescribed or Continued at Discharge Cerebrovascular accident Inclusion Criteria At DC or during hospital stay patient has or had the following: CVA/TIA Diagnosis No Discharge Core Measures Meds if any: Prescribed or Continued at Discharge Meds if any: NOT Prescribed or Continued at Discharge Venous thromboembolism Inclusion Criteria VTE Diagnosis No VTE Type NONE VTE Confirmed by (Test) NONE Discharge Core Measures - Per Current guidelines, there needs to be overlap - treatment for the first 5 days of Warfarin therapy. - If discharged on Warfarin prior to 5 days of - overlap therapy, the patient will need to be - assessed for post discharge needs including - *Post discharge parental anticoagulation - *Warfarin and/or parental anticoagulation education - *Follow up date to check INR post discharge At least 5 days overlap therapy as Inpatient No Meds if any: Prescribed or Continued at Discharge Note: Overlap Therapy is Warfarin and Anticoagulant Meds if any: NOT Prescribed or Continued at Discharge
[2017-09-08] MEDS ORDERED: PANTOPRAZOLE SO40 M1 PO (14:55)
[2017-09-08] MEDS ORDERED: LEVSIN0.5 MG/1 M PO (14:55)
[2017-09-08 21:19] VITALS: BP 130/70
[2017-09-09 06:49] VITALS: BP 144/80
--- NOTE | 2017-09-09 07:10 | PN- Housestaff ---
Subjective Follow-up For: Pancreatitis Subjective: Ms Santoro was seen and examined this morning. Resting comfrotably in bed. States pain is better contorlled, although finds that the duration of pain relief is relatively short. She also sates that she experienced pain this morning after eating a few forks of her eggs. Location of the pain was in the epigastric area. She has been able to tolerate toast however with no issues. She denies any fever, chills, nausea or vomiting. Review of Systems Constitutional: Reports: see HPI. Objective Last 24 Hrs of Vital Signs/I&O Vital Signs Date Time Temp Pulse Resp B/P B/P Pulse O2 O2 Flow FiO2 Mean Ox Delivery Rate 09/09 0649 98.2 84 20 144/80 99 Room Air 09/08 2119 99.1 74 20 130/70 95 09/08 1440 99.1 94 20 124/70 97 Room Air Intake & Output 09/09 1600 09/09 0800 09/09 0000 Intake Total 480 900 Output Total Balance 480 900 Intake, Oral 480 900 Physical Exam General Appearance: Alert, Oriented X3, Cooperative Cardiovascular: Regular Rate, Normal S1, Normal S2 Lungs: Clear to Auscultation Abdomen: Normal Bowel Sounds, Soft, No Tenderness Neurological: Normal Speech, Strength at 5/5 X4 Ext Extremities: No Clubbing, No Cyanosis, No Edema Current Medications: Current Medications Sig/Ella Start time Last Medication Dose Route Stop Time Status Admin Heparin Sodium 5,000 UNIT Q8 09/07 0600 AC 09/09 (Porcine) SC 0631 Hyoscyamine 0.125 MG Q4 HRS NEEDED PRN 09/07 0915 AC 09/09 PO 0451 Multivitamins 1 TAB DAILY 09/07 1000 AC 09/09 Therapeutic PO 0755 Omeprazole 40 MG DAILY AC 09/08 0854 AC 09/09 PO 0631 Oxycodone/ 2 TAB Q4-6 PRN PRN 09/09 0900 AC 09/09 Acetaminophen PO 1009 Oxycodone/ 1 TAB Q4P PRN 09/08 0900 DC 09/09 Acetaminophen PO 0452 Assessment/Plan Assessment: Ms Santoro is a 67-year-old female with a PMH significant for HTN, HLD, for acute pancreatitis approximately one year ago, GERD, alcohol use disorder last drink to significantly in September 2016 admitted to drinking on 2016 as well, who presented to ED complaining of severe abdominal pain, nausea, vomiting. CT abdomen pelvis with no abnormalities of the pancreas, hepatic steatosis. Patient had severe abdominal pain nausea and vomiting and elevated lipase and amylase with elevated anion gap acidosis, normal lactic acid. Vital signs on admission: T 98.2, P114, RR 16, BP 130/83, saturating 98% on room air Labs on admission: Sodium 140, CO2 11, glucose 26, serum osmolality 325, corrected anion gap 29, AST 40, alkaline phosphatase 136, total protein of only, albumin 5.2, triglycerides 352, cholesterol 295, amylase 211, lipase 1858, UA: negative for ketones, WBC 1-3, moderate epithelial cells, few bacteria, rare hyaline cast, budding yeast, small hemoglobin Problem list #Acute pancreatitis, BISAP score 1 (age) #Hyperlipidemia Plan -Continue on general medicine -Adequate pain management: may convert to Percocet, may consider IV morphine for breakthrough. DC gabapentin, as the patient did not want to take this medciation. - Increase Percocet to 2 tab Q4-6 PRN, may taper down based on symptoms. -Continue home PPI -Hyoscyamine for symptomatic relief -Will need outpatient referral to a provider at the time of discharge. -Dc Planning Diet: Full liquids for now. DVT prophylaxis: Subcutaneous heparin, alps CODE STATUS: Full code Problem List: 1. Pancreatitis Pain Ratin Pain Location: Epigastric Area Pain Goal: Remain pain free Pain Plan: Percocet Tomorrow's Labs & Rationales: No Labs - will likely be discharged.
[2017-09-09 13:58] VITALS: BP 132/84
[2017-09-09 21:37] VITALS: BP 150/80
[2017-09-10 06:51] VITALS: BP 148/78
--- NOTE | 2017-09-10 06:59 | PN- Housestaff ---
See Addendum Subjective Follow-up For: Pancreatitis Subjective: Ms Santoro was seen and examined this morning resting comfortably in bed. Denies any issues overnight. States that she was able to tolerate by mouth intake. She had a grilled cheese sandwich for supper last night. This morning she has been able to tolerate her breakfast. Denies any fever, chills, nausea, vomiting. States the pain has been much better controlled. Has not needed any medications. Review of Systems Constitutional: Reports: see HPI. Objective Last 24 Hrs of Vital Signs/I&O Vital Signs Date Time Temp Pulse Resp B/P B/P Pulse O2 O2 Flow FiO2 Mean Ox Delivery Rate 09/10 650 98.6 90 18 148/78 97 09/09 2137 99.2 89 18 150/80 98 09/09 1358 98.2 72 18 132/84 97 Room Air Intake & Output 09/10 1600 09/10 0800 09/10 0000 Intake Total 240 480 Output Total Balance 240 480 Intake, Oral 240 480 Physical Exam General Appearance: Alert, Oriented X3, Cooperative Cardiovascular: Normal S1, Normal S2 Lungs: Clear to Auscultation Abdomen: Normal Bowel Sounds, Soft, No Tenderness Neurological: Normal Gait, Normal Speech, Strength at 5/5 X4 Ext Extremities: No Clubbing, No Cyanosis, No Edema Current Medications: Current Medications Sig/Ella Start time Last Medication Dose Route Stop Time Status Admin Heparin Sodium 5,000 UNIT Q8 09/07 0600 AC 09/10 (Porcine) SC 0516 Hyoscyamine 0.125 MG Q4 HRS NEEDED PRN 09/07 0915 AC 09/09 PO 2132 Multivitamins 1 TAB DAILY 09/07 1000 AC 09/09 Therapeutic PO 0755 Omeprazole 40 MG DAILY AC 09/08 0854 AC 09/10 PO 0516 Oxycodone/ 2 TAB Q4-6 PRN PRN 09/09 0900 AC 09/10 Acetaminophen PO 0154 Oxycodone/ 1 TAB Q4P PRN 09/08 0900 DC 09/09 Acetaminophen PO 0452 Patient Medication 1 ED ONE ONE 09/09 1045 DC 09/09 Teaching ED 09/09 1046 1159 Assessment/Plan Assessment: Ms Santoro is a 67-year-old female with a PMH significant for HTN, HLD, for acute pancreatitis approximately one year ago, GERD, alcohol use disorder last drink to significantly in September 2016 admitted to drinking on 2016 as well, who presented to [facility] ED complaining of severe abdominal pain, nausea, vomiting. CT abdomen pelvis with no abnormalities of the pancreas, hepatic steatosis. Patient had severe abdominal pain nausea and vomiting and elevated lipase and amylase with elevated anion gap acidosis, normal lactic acid. Vital signs on admission: T 98.2, P114, RR 16, BP 130/83, saturating 98% on room air Labs on admission: Sodium 140, CO2 11, glucose 26, serum osmolality 325, corrected anion gap 29, AST 40, alkaline phosphatase 136, total protein of only, albumin 5.2, triglycerides 352, cholesterol 295, amylase 211, lipase 1858, UA: negative for ketones, WBC 1-3, moderate epithelial cells, few bacteria, rare hyaline cast, budding yeast, small hemoglobin Problem list #Acute pancreatitis, BISAP score 1 (age) #Hyperlipidemia Plan -Continue on general medicine, consider discharge after morning rounds. -Adequate pain management: may convert to Percocet, may consider IV morphine for breakthrough. DC gabapentin, as the patient did not want to take this medciation. - Continue Percocet to 2 tab Q4-6 PRN, may taper down based on symptoms. -Continue home PPI -Hyoscyamine for symptomatic relief -Will need outpatient referral to a provider at the time of discharge. Diet: Full liquids for now. DVT prophylaxis: Subcutaneous heparin, alps CODE STATUS: Full code Problem List: 1. Pancreatitis Pain Ratin Pain Location: No Pain Pain Goal: Remain pain free Pain Plan: NA Tomorrow's Labs & Rationales: NA
[2017-09-10] MEDS ORDERED: PERCOCET 5-3251 EACH PO (08:18)
[2017-09-10] MEDS ORDERED: LEVSIN0.5 MG/1 M PO (08:20)
[2017-09-10] MEDS ORDERED: PANTOPRAZOLE SO40 M1 PO (08:20)
== END 2017-09-10 11:43 | DRG 439 ==
LOC: ERH 17:07 → ERHI 09-07 01:06 → 2NB 09-07 01:06 → ENRESERV 09-07 02:02 → 2NB 09-07 02:53
PROVIDERS: Internal Medicine; Physician Assistant
DX: K85.90 Acute pancreatitis without necrosis or infection, unspecified (principal); E87.2 Acidosis; E87.0 Hyperosmolality and hypernatremia; K76.0 Fatty (change of) liver, not elsewhere classified; E78.5 Hyperlipidemia, unspecified; R13.10 Dysphagia, unspecified; I10 Essential (primary) hypertension; K86.1 Other chronic pancreatitis; K21.9 Gastro-esophageal reflux disease without esophagitis; K57.30 Diverticulosis of large intestine without perforation or abscess without bleeding; K42.9 Umbilical hernia without obstruction or gangrene; R91.1 Solitary pulmonary nodule; M47.9 Spondylosis, unspecified; F17.200 Nicotine dependence, unspecified, uncomplicated; Z98.51 Tubal ligation status; Z98.890 Other specified postprocedural states
CPT/HCPCS: 2NBP; 36592; 74177; 80307; 81001; 82436; 87804; 87804-59; 93005; 93010; 96374; 96375; 96376; G0480; J0131; J1644; J2405; J3101

== ENCOUNTER 2017-11-28 17:07 | Inpatient (IN) | payer OTHER ==
[~2017-11-28] VITALS: Ht 157.5 cm; Wt 50.5 kg
[~2017-11-28 17:07] MED LIST: LEVSIN0.5 MG/1 M PO; MULTIVITAMINS1 EAC9 PO; PANTOPRAZOLE SO40 M1 PO; PERCOCET 5-3251 EACH PO
--- NOTE | 2017-11-28 17:17 | ED GI/GU/ABDOMINAL COMPLAINT ---
History of Present Illness General Chief Complaint: General Adult Stated Complaint: "CAN'T DIGEST FOOD.VOMITING UP NOTHING" & RIB PAIN Source: patient Exam Limitations: no limitations Vital Signs & Intake/Output Vital Signs & Intake/Output Vital Signs Date Time Temp Pulse Resp B/P B/P Pulse O2 O2 Flow FiO2 Mean Ox Delivery Rate 11/28 1934 98.1 84 18 115/61 100 Room Air 11/28 1725 98.0 102 20 130/85 100 Room Air Allergies Coded Allergies: No Known Allergies (11/28/17) Triage Nurses Notes Reviewed? yes ? N Is pt currently ? No Onset: Gradual Duration: constant Timing: recent history Severity Numbers: 6 Radiation: back HPI: Patient is a 67-year-old female with a past medical history of hypertension hyperlipidemia pancreatitis due to alcohol abuse and GERD who was last admitted in September to [facility] for concerns of acute pancreatitis and EKG abnormalities. Patient states for the past 3 weeks she has had recurrence of drinking alcohol last drink was approximately 3 days ago however patient presents emergency room with a three-day history of epigastric pain with pain that wraps around her chest to her back. Patient is intolerant of by mouth intake. Patient is complaining of generalized weakness and fatigue and headaches. Denies any arm pain jaw pain diaphoresis dysuria hematuria vaginal bleeding or discharge No change in bowel movements Patient states that she ran out of her previously prescribed Protonix and hyoscyamine (Altagracia LOPEZ,Selwyn) Reconcile Medications Folic Acid 1 MG TABLET 1 TAB PO DAILY supplement (Reported) Hyoscyamine (Levsin) 0.5 MG/ML AMPUL 0.125 MG PO Q4 HRS NEEDED PRN GI UPSET . Multiple Vitamin (Multivitamins) 1 EACH TABLET 1 TAB PO DAILY SUPPLEMENT ( Reported) Oxycodone HCl/Acetaminophen (Percocet 5-325 MG Tablet) 5 MG-325 MG TABLET 1 TAB PO Q12 PRN Abdominal pain Pantoprazole Sodium 40 MG TABLET.DR 1 TAB PO DAILY GI . (Marianne ATKINSON,Jose Maki) Past History Travel History Traveled to [place] past 21 day No Medical History Any Pertinent Medical History? see below for history Neurological: NONE EENT: NONE Cardiovascular: hypertension, hyperlipidemia Respiratory: NONE Gastrointestinal: pancreatitis Hepatic: NONE Renal: NONE Musculoskeletal: RIB FRACTURE Psychiatric: NONE Endocrine: HIGH ANION GAP METABOLIC ACIDOSIS Blood Disorders: HYPOMAGNESEMIA Cancer(s): NONE PSYCHIATRIC ASSISTANT/Reproductive: NONE History of MRSA: No History of VRE: No History of CDIFF: No Surgical History Surgical History: , tubal ligation Psychosocial History Services at Home None What is your primary language Senegalese Family History Family History, If Any: MOTHER FHx: stroke FATHER FHx: stroke Hx Contributory? No (Selwyn Gan) Review of Systems Review of Systems Constitutional: Reports: see HPI. EENTM: Reports: no symptoms. Respiratory: Reports: no symptoms. Cardiovascular: Reports: no symptoms. GI: Reports: see HPI. Genitourinary: Reports: no symptoms. Musculoskeletal: Reports: no symptoms. Skin: Reports: no symptoms. Neurological/Psychological: Reports: see HPI, headache. Hematologic/Endocrine: Reports: no symptoms. Immunologic/Allergic: Reports: no symptoms. All Other Systems: Reviewed and Negative (Selwyn Gan) Physical Exam Physical Exam General Appearance: no apparent distress, alert, awake, comfortable Head: atraumatic Eyes: Bilateral: normal appearance, EOMI. Ears, Nose, Throat, Mouth: hearing grossly normal, moist mucous membrane Neck: normal inspection Respiratory: normal breath sounds, chest non-tender, no respiratory distress Cardiovascular: regular rate/rhythm Gastrointestinal: normal bowel sounds, soft, tenderness Back: normal inspection Neurologic/Psych: no motor/sensory deficits, awake, alert Skin: intact, normal color, warm/dry Core Measures ACS in differential dx? No Sepsis Present: No Sepsis Focused Exam Completed? No (Selwyn Gan) Progress Differential Diagnosis: AAA, AMI, appendicitis, biliary colic, bowel obstruction , colon cancer, cholecystitis, diverticulitis, endometritis, esophageal varices, gastritis, hepatitis, hernia, hemorrhoids, ischemic bowel, inflamm bowel dis, kidney stone, Nithya-Alexandro tear, ovarian cyst, ovarian torsion, pancreatitis, PID/cervicitis, peptic ulcer, PUD/GERD, perforated viscous, SBO, UTI/pyelo Plan of Care: Orders Procedure Date/time Status PHOSPHORUS 11/30 06 Active Heart Healthy Diet 11/29 B Active SWALLOW EVALUATION 11/29 0800 Active PHOSPHORUS 11/29 0600 Active MAGNESIUM 11/29 0600 Active CBC WITHOUT DIFFERENTIAL 11/29 0600 Active BASIC ELECTROLYTES PLUS BUN&CR 11/29 0600 Active MAGNESIUM 11/29 0000 Active BASIC ELECTROLYTES PLUS BUN&CR 11/29 0000 Active Clear Liquid Diet 11/28 D Complete Pathway - chart 11/28 2125 Active House Staff 11/28 2125 Active URINALYSIS 11/28 2125 Active Code Status 11/28 2125 Active Add-on Test (ER Only) 11/29 2023 Active Patient Data 11/28 2014 Active ED Holding Orders 11/28 2012 Active Admit to inpatient 11/28 2012 Active Vital Signs 11/28 2012 Active Code Status 11/28 2012 Complete Add-on Test (ER Only) 11/28 1820 Active Intake & Output 11/28 1757 Active PHOSPHORUS 11/28 1747 Complete MAGNESIUM 11/28 1747 Complete LIPID PANEL 11/28 1747 Complete LACTIC ACID 11/28 1719 Complete TROPONIN LEVEL 11/28 1715 Complete LIPASE 11/28 1715 Complete ETHANOL 11/28 1715 Complete D-DIMER 11/28 1715 Complete COMPREHENSIVE METABOLIC PANEL 11/28 1715 Complete CBC WITHOUT DIFFERENTIAL 11/28 1715 Complete EKG 11/28 1714 Active Lab Add-on Test 11/28 UNK Active VTE Mechanical Prophylaxis 11/28 UNK Active MISTAKE 11/28 UNK Active CIWA 11/28 UNK Active Activity/Ambulation 11/28 UNK Active Current Medications Sig/Ella Start time Last Medication Dose Stop Time Status Admin Enoxaparin Sodium 40 MG DAILY 11/29 09 UNVr (Lovenox) Folic Acid 1 MG DAILY 11/29 09 UNVr (Folic Acid) Multivitamins 1 TAB DAILY 11/29 0900 AC (Theragran Vitamins) Nicotine 7 MG Q24 11/29 0900 AC (Nicotine Cq) Pantoprazole Sodium 40 MG BID 11/29 0900 AC (Protonix) Potassium Chloride 40 MEQ ONCE ONE 11/28 2214 UNVr (K-Dur) 11/29 2215 Thiamine HCl 100 MG DAILY 11/28 220 AC (Vitamin B1) Acetaminophen 1,000 MG Q6P PRN 11/28 2129 UNVr (Ofirmev) Cyanocobalamin/ 1 BAG ONCE ONE 11/28 2129 UNVr Thiamine/Pyridoxine 11/29 0529 (Vitamin in I.V.) Dextrose/Water 1,000 ML (D5W 1000) Magnesium Sulfate 1 GM Q2H 11/28 2129 UNVr 11/28 (Mag Sulfate in D5) 11/29 0129 2150 Dextrose/Water 100 ML (D5W) Ondansetron HCl 4 MG Q8P PRN 11/28 2129 AC (Zofran) Oxycodone/ 1 TAB Q12 PRN 11/28 2129 AC Acetaminophen (Percocet) Potassium Chloride 40 MEQ Q10H 11/28 2129 UNVr (KCl 40MEQ in NS 1000ML) Sodium Chloride 1,000 ML (Normal Saline 0.9%) Sodium Chloride 500 ML BOLUS ONE 11/28 2129 UNVr (Normal Saline 0.9%) 11/28 2228 Lorazepam 1 MG BID 11/28 2121 AC (Ativan) Potassium Chloride 40 MEQ ONCE ONE 11/28 1845 AC 11/28 (KCl 40MEQ in NS 11/29 0244 1913 1000ML) Sodium Chloride 1,000 ML (Normal Saline 0.9%) Potassium Chloride 20 MEQ ONCE ONE 11/28 183 CAN (KCl 20MEQ in D5W NS 11/28 1831 1000ML) Sodium Chloride 1,000 ML BOLUS ONE 11/28 1815 CAN (Normal Saline 0.9%) 11/28 191 Laboratory Tests 11/28/17 2019: Lactic Acid Cancelled 11/28/17 1747: Lactic Acid 1.1 11/28/17 1747: Anion Gap 23 H, Estimated GFR > 60, BUN/Creatinine Ratio 10.0, Glucose 103 H, Calcium 9.1, Phosphorus 3.4, Magnesium 1.1 L, Total Bilirubin 0.8, AST 69 H, ALT 42, Alkaline Phosphatase 131 H, Troponin I < 0.01, Total Protein 7.0, Albumin 4.0, Globulin 3.0, Albumin/Globulin Ratio 1.3, Triglycerides 136, Cholesterol 156, LDL Cholesterol, Calc 63 L, HDL Cholesterol 66 H, Cholesterol /HDL Ratio 2.4, Lipase < 10 L, D-Dimer High Sensitivty < 200, CBC w Diff NO MAN DIFF REQ, RBC 3.98 L, MCV 98.2, MCH 32.8 H, MCHC 33.4, RDW 15.0 H, MPV 7.6, Gran % 70.6, Lymphocytes % 17.1 L, Monocytes % 8.6, Eosinophils % 2.6, Basophils % 1.1, Absolute Granulocytes 4.6, Absolute Lymphocytes 1.1 L, Absolute Monocytes 0.6, Absolute Eosinophils 0.2, Absolute Basophils 0.1, Serum Alcohol < 10.0 Patient upon initial presentation is resting complete bedside has diffuse abdominal discomfort however there is subtle T-wave inversions noted from previous EKG that haven't changed and due to patient's hypokalemia admission is warranted. Patient was given supplemental potassium There is CT scan findings for concerns of ileus in which surgery is aware of admission and will consult Discussed admission with patient who agrees and has no questions Diagnostic Imaging: Viewed by Me: CT Scan. Radiology Impression: see comments Initial ED EK BPM SINUS RHYTHM NONSPECIFIC st ABNORMALITIES WITH V3 INVERSION T WAVES WHICH IS NEW Prior EKG: changed Comments: PATIENT: NEWTON YOUNG PRESENT AGE: 67 PATIENT ACCOUNT NO: [id number] : 51 LOCATION: [facility] ORDERING PHYSICIAN: Selwyn LOPEZ SERVICE DATE: 11/28/17 EXAM TYPE: RAD - XRY-CHEST XRAY, TWO VIEWS EXAMINATION: XR CHEST CLINICAL INFORMATION: Chest pain. COMPARISON: None TECHNIQUE: 2 views of the chest were obtained. FINDINGS: No significant abnormality is noted involving the heart, lungs, mediastinum, bony thorax or soft tissues. IMPRESSION: Unremarkable chest examination. DICTATED BY: Ever Hannah MD DATE/TIME DICTATED:11/28/171932 SERVICE STATION MANAGER:REFUGIO DATE/TIME TRANSCRIBED:11/28/171932 (Selwyn Gan) Departure Departure Disposition: STILL A PATIENT Condition: Stable Clinical Impression Primary Impression: Hypokalemia Secondary Impressions: Abdominal pain, EKG abnormalities, Ileus, Metabolic acidosis Referrals: Patient Has No Primary Care Dr (PCP/Family) Departure Forms: Customer Survey General Discharge Information Admission Note Spoke With: Eugenio Silva MD Documentation of Exam: Documentation of any treatments & extenuating circumstances including Concerns Regarding Discharge (functional status, medication knowledge or non-compliance, living conditions, etc.) that warrant an admission rather than observation: [ Patient requires telemetry admission for concerns of hypokalemia potassium supplementation requires repeat EKG repeat labs surgery consultation IV fluids anti-medics gastroenterology consultation] (Selwyn Gan) PA/MOUNTED POLICE OFFICER Co-Sign Statement Statement: ED Attending supervision documentation- [X] I saw and evaluated the patient. I have also reviewed all the pertinent lab results and diagnostic results. I agree with the findings and the plan of care as documented in the PA's/MOUNTED POLICE OFFICER's documentation. [X] I have reviewed the ED Record and agree with the PA's/MOUNTED POLICE OFFICER's documentation. [] Additions or exceptions (if any) to the PAs/MOUNTED POLICE OFFICER's note and plan are summarized below: [Patient to be admitted for intractable vomiting, abdominal pain, hypokalemia with EKG changes. Patient will need potassium replacement, IV fluids, surgical consultation, GI consultation] (Marianne ATKINSON,Jose Maki) Critical Care Note Critical Care Note Critical Care Time: 30-74 min (Altagracia LOPEZ,Selwyn)
[2017-11-28 17:58] LABS: ABSOLUTE BASOPHIL COUNT 0.1 /CUMM (0.0-0.2); ABSOLUTE EOSINOPHIL COUNT 0.2 /CUMM (0.0-0.7); ABSOLUTE GRANULOCYTE CT 4.6 /CUMM (1.4-6.5); ABSOLUTE LYMPH COUNT 1.1 /CUMM (1.2-3.4); ABSOLUTE MONOCYTE COUNT 0.6 /CUMM (0.10-0.60); BASOPHIL % 1.1 % (0.0-2.0); EOSINOPHIL % 2.6 % (0-5); GRANULOCYTE % 70.6 % (42.2-75.2); HEMATOCRIT 39.1 % (37-47); MEAN CORPUSCULAR HGB 32.8 PG (27.0-31.0); MEAN CORPUSCULAR HGB CONC 33.4 G/DL (33.0-37.0); MEAN CORPUSCULAR VOLUME 98.2 FL (81.0-99.0); MEAN PLATELET VOLUME 7.6 FL (7.4-10.4); PLATELET COUNT 266 /CUMM (130-400); RED BLOOD CELL CT 3.98 /CUMM (4.20-5.40); WHITE BLOOD CELL COUNT 6.5 /CUMM (4.8-10.8)
--- NOTE | 2017-11-28 19:37 | RADIOLOGY REPORT ---
EXAMINATION: XR CHEST CLINICAL INFORMATION: Chest pain. COMPARISON: None TECHNIQUE: 2 views of the chest were obtained. FINDINGS: No significant abnormality is noted involving the heart, lungs, mediastinum, bony thorax or soft tissues. IMPRESSION: Unremarkable chest examination.
--- NOTE | 2017-11-28 19:49 | CT SCAN REPORT ---
EXAMINATION: CT ABDOMEN AND PELVIS WITH CONTRAST CLINICAL INFORMATION: Abdominal pain. COMPARISON: None TECHNIQUE: Multidetector volumetric imaging was performed of the abdomen and pelvis following IV administration of 95 mL of Optiray 320 intravenous contrast. Sagittal and coronal reformatted images were obtained on the technologist's workstation. DLP: 264 mGy-cm FINDINGS: LUNG BASES: The visualized lung bases are unremarkable. LIVER, GALLBLADDER, AND BILIARY TREE: The liver is normal in size, shape, and diffuse attenuation. No focal hepatic lesion or biliary ductal dilatation is present. The gallbladder is unremarkable with no evidence of radiopaque gallstones, gallbladder wall thickening, or obvious pericholecystic inflammatory changes. PANCREAS: Unremarkable. SPLEEN: Unremarkable. ADRENAL GLANDS: Unremarkable. KIDNEYS AND URETERS: The kidneys are normal in size, shape, and attenuation. No hydronephrosis, hydroureter, or calculi seen. No perinephric stranding. BLADDER: Unremarkable. GASTROINTESTINAL TRACT: Nondistended colon is noted. There are multiple small small bowel nondistended small air-fluid levels. These are nonspecific. The stomach is nondistended. No free air or free fluid seen. Appendix is not seen with certainty. ABDOMINAL WALL: No significant hernia is appreciated. LYMPH NODES: Normal. VASCULAR: Unremarkable. PELVIC VISCERA: The uterus is anteverted and slightly bulky in the fundal region. This could be secondary to fibroid disease which is not well visualized on this exam. No free fluid. No adnexal mass. No abnormal pelvic lymph nodes seen. OSSEOUS STRUCTURES: There are degenerative disc changes with vacuum disc phenomena L4-L5 disc level. Mild spondylosis seen at L4-L5 disc level. No lytic or sclerotic process is noted. IMPRESSION: Nonspecific small air-fluid levels seen in small bowel. Normal colon and stomach. Question early small bowel ileus. No free air free fluid. Diffuse hepatic steatosis. Slightly bulky uterine fundus. Question fibroid disease. Correlate with ultrasound if clinically indicated.
--- NOTE | 2017-11-28 20:26 | History & Physical ---
AnkushDiallo 11/28/172024: General Information and HPI MD Statement: I have seen and personally examined NEWTON YOUNG and documented this H&P. The patient is a 67 year old F who presented with a patient stated chief complaint of difficulty in swallowing, nausea, abdominal pain and headache []. Source of Information: patient, old records Exam Limitations: no limitations History of Present Illness: 67 YO F, smoker (5-6 cigarettes/d) with a PMH of HTN, HLD, acute pancreatitis, GERD, alcohol abuse and rib fractures came to ED with the chief complaint of difficulty in swelling, nausea, abdominal pain for last 4 days and headache since yesterday. According to patient he was in her usual state of health 3-4 days back when she suddenly noticed having difficulty in swallowing, she tried to take liquid insure milk but she couldn't swallow it. She also reported that she is feeling nauseous and bringing some mucus. Patient also reported that she has abdominal pain, continuous, dull and radiating to lower chest bilaterally. According to the patient she is able to pass gas but she didn't have any bowel movement. Although patient is feeling hungry but she is not able to eat or drink due to difficulty in swallowing. She went to the clinic last week but she was not able to pay the co-pays that's when she came back home. But today she was not able to tolerate anything and she was feeling hungry so she decided to come to ED. According to patient she also reported that she has unintentional 5 pounds of weight loss last couple of weeks. She also reported having headache since yesterday, 03/17, in whole had and also in her eyes and she attributed this to her hunger. She reported that she is drinking alcohol 3-4 shots every day and her last drink was 4 days back. According to patient she started to drink 3 weeks back. She also reported having generalized weakness and feeling dizzy. She denied chest pain, palpitation, vomiting, constipation, diarrhea, loss of consciousness, numbness, tingling, blood in vomitus, black stools, hematuria, rash, tick bite, sick contact, fever, chills and dysuria. According to the patient she had upper GI endoscopy last year in [facility] and that was normal. She was admitted last time in [place] in September 2017 and treated for acute pancreatitis. ED course: Vitals: Temperature 98.0, pulse 102, respiratory rate 20, blood pressure 1:30/85 , oxygen saturation 100% room air Labs: WBC count 6.5, hemoglobin 13.0, hematocrit 39.1, platelet count 266, sodium 140, potassium 2.6, BUN 7, creatinine 0.7, anion gap 23, BUN/creatinine ratio 20.0, glucose 103, calcium 9.1, magnesium 1.1, total bilirubin 0.8, AST 69 , LDL 42, alkaline phosphatase 131, troponin less than 0.01, total protein 7.0, albumin 4.0, lipase less than 10, d-dimer less than 200 Patient received potassium supplementation and normal saline in ED. Allergies/Medications Allergies: Coded Allergies: No Known Allergies (11/28/17) Past History Travel History Traveled to [place] past 21 day No Medical History Neurological: NONE EENT: NONE Cardiovascular: hypertension, hyperlipidemia, PT DENIES HX OF HTN & >CHOL. 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 self Services at Home: None Primary Language: Danish ETOH Use: alcoholic Illicit Drug Use: denies illicit drug use Functional Ability ADLs Independent: dressing, eating, toileting, bathing. Ambulation: independent Review of Systems Review of Systems Constitutional: Reports: weakness. Denies: chills, fever. EENTM: Reports: no symptoms. Cardiovascular: Denies: chest pain, orthopena, palpitations, syncope. Respiratory: Denies: cough, short of breath, sputum production, wheezing. GI: Reports: abdominal pain, nausea. Denies: constipation, distention, bloody stool , vomiting. Genitourinary: Denies: discharge, frequency, hematuria, pain. Musculoskeletal: Reports: see HPI. Skin: Reports: no symptoms. Neurological/Psychological: Reports: headache. Denies: confusion, numbness, tingling. Hematologic/Endocrine: Reports: no symptoms. Exam & Diagnostic Data Last 24 Hrs of Vital Signs/I&O Vital Signs Date Time Temp Pulse Resp B/P B/P Pulse O2 O2 Flow FiO2 Mean Ox Delivery Rate 11/28 1934 98.1 84 18 115/61 100 Room Air 11/28 1725 98.0 102 20 130/85 100 Room Air Physical Exam General Appearance Alert, Oriented X3, Cooperative Skin No Rashes Skin Temp/Moisture Exam: Warm/Dry Sepsis Skin Exam (color): Normal for Ethnicity HEENT Atraumatic, PERRLA, EOMI Neck Supple Cardiovascular Normal S1, Normal S2 Lungs Clear to Auscultation Abdomen Normal Bowel Sounds, Soft, Mild tenderness in epigastrium Neurological Normal Speech, Strength at 5/5 X4 Ext, Normal Tone, Sensation Intact Extremities No Edema Assessment/Plan Assessment: 67 YO F, smoker (5-6 cigarettes/d) with a PMH of HTN, HLD, acute pancreatitis, GERD, alcohol abuse and rib fractures came to ED with the chief complaint of difficulty in swelling, nausea, abdominal pain for last 4 days and headache since yesterday. We will admit the patient on telemetry floor considering her low potassium and nonspecific EKG changes. Hypokalemia with EKG changes: -Her potassium level was 2.6 on admission possibly due to low oral intake and alcohol use. -On admission patient also having nonspecific EKG changes although she is asymptomatic not complaining of any chest pain. We will take part in telemetry floor and watch for any EKG changes. -Potassium supplementation and we will check BEP for potassium again. Alcohol detox: -Patient had last drink 4 days back and she is drinking 3-4 shots every day.. -We will keep the patient on CIWA protocol. -Ativan 11 mg twice a day -Folic acid and vitamin B12 supplementation Dehydration and abdominal pain: -Patient is complaining of abdominal pain, nausea, could be possible due to alcoholic gastritis as she is drinking everyday 3-4 shots. Her lipase is normal to r/o pancreatitis. -We will continue IV pantoprazole -IV zofran as needed for nausea. -Gentle IV hydration with normal saline -We will encourage the patient to take clear liquids by mouth. -GI consult Swelling difficulty: -Patient is complaining of swelling difficulty for last 4 days even with liquids and she has history of smoking and alcohol abuse. -Swallow evaluation in a.m. -We will get the record of last Endoscopy from [facility]. -Considering that patient also reported having unintentional weight loss with risk factors of smoking and alcohol abuse, we will rule out any esophageal lesion. -We will get GI consult Hypomagnesemia: -Possibly due to alcohol abuse -On admission her magnesium was 1.1 -We will replete her magnesium and also check phosphorous. History of smoking: -Smoking cessation counselling. -Nicotine patch as needed History of hypertension and hyperlipidemia: -Patient is not taking any medication for HTN and HLD. DVT prophylaxis: Mechanical and subcutaneous heparin CODE STATUS: DNR/DNI As Ranked By This Provider Problem List: 1. Abdominal pain 2. Hypokalemia 3. Hypomagnesemia 4. Difficulty in swallowing Core Measures/Misc (02/22) Acute Coronary Syndrome ACS Diagnosis: No Congestive Heart Failure Congestive Heart Failure Diagnosis No Cerebrovascular Accident CVA/TIA Diagnosis: No VTE (View Protocol) VTE Risk Factors Age>40 No Mechanical VTE Prophylaxis d/t N/A MechProphylax Ordered No VTE Pharm Prophylaxis d/t NA PharmProphylax ordered Sepsis (View protocol) Sepsis Present: No If YES complete Sepsis Event Note If YES complete Sepsis Event Note Abner Larsen MD 11/28/172040: General Information and HPI Allergies/Medications Home Med list Folic Acid 1 MG TABLET 1 TAB PO DAILY supplement (Reported) Hyoscyamine (Levsin) 0.5 MG/ML AMPUL 0.125 MG PO Q4 HRS NEEDED PRN GI UPSET . Multiple Vitamin (Multivitamins) 1 EACH TABLET 1 TAB PO DAILY SUPPLEMENT ( Reported) Oxycodone HCl/Acetaminophen (Percocet 5-325 MG Tablet) 5 MG-325 MG TABLET 1 TAB PO Q12 PRN Abdominal pain Pantoprazole Sodium 40 MG TABLET. 1 TAB PO DAILY GI . Core Measures/Misc (02/22) Sepsis (View protocol) If YES complete Sepsis Event Note If YES complete Sepsis Event Note Resident Review Statement Other Findings: History of Present Illness 67 year old woman with past medical history of hyperlipidemia, EtOH Abuse, pancreatitis, and chronic pain on percocet seen for evaluation of inability to swallow solids / liquids, nausea, vomiting, and abdominal pain. Patient was previously admitted to [facility] from 09/07/17 - 09/10/17 for evaluation of nausea, vomiting, and diarrhea found to have hypertriglyceridemia and acute pancreatitis. Patient was treated with intravenous fluids and discharged to home. She was lost to follow up in the outpatient medicine clinic as she "couldn't afford it". Patient reports about 4 days about she could "no longer swallow". She couldn't eat solids or liquids stating that they would get "stuck" in her chest. She admits to moderate abdominal with associated nauseated and vomiting of mucous- like material. She has gone from 107 to 102 in the past week. She has not been eating/drinking well due to this despite having a good appetite; she admits to still passing gas. She developed a moderate/severe headache in the past 24 hours that she attributes to hunger and dehydration. She was reportedly admitted to [facility] in "early last year" for similar reasons where an upper endoscopy was performed and reportedly normal. Review of Systems She otherwise denies any fever, chills, blurred / double vision, lightheadedness , chest pain, palpitations, shortness of breath, cough, constipation, urinary complaints. Social History Patient smokes up to 1/2 ppd. She started drinking alcohol again 3 weeks ago, last drink 4 days ago, drinking 3-4 shots of hard liquor each day. She denies any recreational drug use. Objective Vitals Temp 98.0-98.1, HR 84-102, RR 18-20, SBP 115-130, O2 100% on room air Physical Exam -General: well developed, elderly black woman appearing uncomfortable but in no acute distress -HEENT: NCAT, PERRL, EOMI, anicteric sclera -Neck: Supple, no JVD, trachea midline, no accessory respiratory muscle use -Cardio: Normal S1/S2 w/o m/g/r; RRR -Pulm: CTA Bilaterally -Abdomen: Soft, mild/moderate diffuse abdominal tenderness with positive tucker sign without guarding or rigidity, mildly distended, bowel sounds intact -Neuro: Awake and alert, CN II-XII grossly intact -Extremities: normal pulses, no edema Labs / Imaging / Studies -CBC: WBC 6.5, HGB 13.0, HCT 39.1, PLT 266 -BMP: Na 140, K 2.6, Cl 99, CO2 18, BUN 7, Creatinine 0.7, AG 23, Glucose 103 -LFT: AST 69, ALT 42, ALP 131, T. Bili 0.8 -Misc: EtOH < 10, Lipase negative, D-Dimer negative, Magnesium 1.1, Lactic Acid 1.1 -CXR: unremarkable -CT Abdomen / Pelvis with IV contrast: non-specific mulitiple small bowel air fluid levels with questionable early ileus, hepatic steatosis, bulky uterus -EKG 09/06/17: NSR, LVH, Left Atrial abnormalities, Non-specific ST Twave changes in V1 - V3 -EKG 11/28/17: no change from previous Assessment 67 year old woman with multiple medical problems significant for alchol abuse, tobacco use, hyperlipidemia, pancreatitis, and GERD seen for evaluation of inability to swallow solids / liquids, nausea, vomiting, and abdominal pain over the past four days. Presently patient is complaining of her abdominal discomfort and headache but is requesting to eat. Vital signs are within normal limits. Physical examination is significant for mild/moderate diffuse abdominal tenderness without guarding or rigidity but with positive tucker sign and intact bowel sounds. Labs studies were signficant for K 2.6, Mg 1.1, Lactic 1.1, Anion gap 23, and Lipase/EtOH/D- Dimer negative. Chest x-ray is unremarkable. CT Abdomen/Pelvis with contrast found a possible early ileus with several other chronic findings; bile duct appeared normal. EKG has chronic ST T-wave segment changes. Patient received intravenous acetaminophen, IV Normal Saline with KCl, oral KCL, Zofran, Protonix , and Toradol in the ED. Clinically patients decreased oral intake to solids and liquids is concerning for an esophageal dismolity disorder versus obstruction secondary to mass effect ; however patients details regarding her symptoms are vague and she was able to take an oral potassium supplement without issue in the ED. Her abdominal pain is likely due to retching however given her positive tucker sign biliary tree pathology should be considered but is likely as her CBD was normal caliber on CT A/P with relatively normal LFTs; this may need to be further evaluated with abdominal ultrasound versus HIDA. Patient is to be admitted to the telemetry floor for intravenous fluids, telemetry monitoring, electrolyte repleation, and GI / Gen surgery evaluation. Problem list -Dysphagia, abdominal pain, nausea, vomiting; possible gastroenteritis / esophagitis versus esophageal disease -Hypokalemia / hypomagnesemia, likely multifactorial secondary to decreased PO intake, alcohol use, and malnutrition -Anion gap metabolic acidosis -Questionable early ileus -Transaminitis, likely due to alcohol use -History of EtOH Abuse -Current Smoker, 1/2 ppd -History of alcohol / hypertriglyceride induced pancreatitis -GERD -Chronic pain, on percocet Plan -Admit to telemetry floor -playground monitor -CIWA -Check orthostatic blood pressures -NS + 40 mEq KCl @ 125 mL/hr -Protonix 40 mg IV BID -Ativan 1 mg PO BID -Zofran PRN for nausea -Banana bag x1 -Thiamine / Folate / Multivitamin -Magnesium 2 g IV now -Consult with surgery for questionable ileus -Consult with GI for abdominal pain / dysphagia -Obtain records from [facility] -Swallow evaluation +/- modified barium swallow -Monitor serum chemistry and Mag, check again tonight -Check urinalysis, lipid panel -Check Phopshorus now and daily for 2 more days -Pain control with acetaminophen -Clear liquid diet, advance as tolerated -DVT PPx with lovenox -DNR/DNI Eugenio Silva 11/29/17 0131: Core Measures/Misc (02/22) Sepsis (View protocol) If YES complete Sepsis Event Note If YES complete Sepsis Event Note Attending MD Review Statement Attending Statement Attending MD Statement: examined this patient, discuss w/resident/PA/TIRE WRAPPER, agreed w/resident/PA/TIRE WRAPPER, reviewed EMR data (avail), reviewed images, amended to note Attending Assessment/Plan: CC: Nausea vomiting abdominal pain PMH: HTN, GERD, HLD, history of pancreatitis, history of alcoholism Patient came to ER for epigastric abdominal pain radiating to her back 10/10 in intensity since last 4 days, worsened today, improved after coming to ER with associated nausea and several episodes of vomiting with clear vomitus no food or blood. No history of melena or blood in stool. She states that since last 4 days she is unable to swallow anything, food feels stuck in her throat, a lot of secretions in her throat followed by vomiting. She did not have any bowel movement since last 4 days but passing gas. She had history of pancreatitis and this in feels similar to that. She also has history of GERD, was recently seen outpatient and was prescribed medications but it was expensive for her so she has not been taking any of her medications because of cost issues. She drinks 3- 4 shots every day, last drink was 4 days back. She denies any chest pain, chest tightness, shortness of breath, palpitation, loss of consciousness. She has headache otherwise complete ROS unremarkable. Vitals: Temperature 98.0, pulse 102, RR 20, blood pressure 130/85, saturating 100% on room air. On exam: A O 3, cooperative, no acute distress, neck supple, JVD normal, no lymphadenopathy, mucosa dry, no focal neurological deficit, no dependent edema, no obvious skin rashes or inflammation CVS: S1-S2, RRR. RS: Clear to auscultate bilaterally. Abdomen: Soft, NT, ND, bowel sounds hyperactive. CXR: Unremarkable chest examination. CT abdomen pelvis with IV contrast: Nonspecific small air-fluid levels seen in small bowel. Normal colon and stomach. Question early small bowel ileus. No free air free fluid. Diffuse hepatic steatosis. Slightly bulky uterine fundus. Question fibroid disease. Correlate with ultrasound if clinically indicated. Assessment and plan 67-year-old female with above-mentioned past medical history presented in ER for 4 day history of epigastric abdominal pain radiating to back, associated nausea vomiting, nonbilious, nonbloody. Patient feels food stuck in her throat when she eats and has not been able to eat anything since last 4 days. Patient finished a full peanut butter jelly sandwich in ER without any problem and swallowed fine in front of me. She states that he feels much better after coming to ER. She ran out off her medications for GERD, was seen outpatient for the same but could not afford medication so has not been taking her PPI since last few days. She has been drinking 3-4 shots since last 3-4 weeks but last drink was 4 days back. Otherwise complete ROS unremarkable. She appears dehydrated on examination and labs significant for hypokalemia, hypomagnesemia, anion gap metabolic acidosis, mild transaminitis all could be secondary to decreased by mouth intake dehydration and starvation ketosis. She may have gastritis exacerbated by alcohol and not being on PPI which worsened her symptoms. She is symptomatically better after IV hydration, pain medication and Protonix and tolerated food as mentioned above. She has T-wave inversion in V3 V4 compared to her previous ECG. Will watch her on telemetry given the ECG changes and electrolyte imbalance. Her last EGD was 3 years back and has been getting outpatient follow-up when she was in [facility]. CT abdomen shows concern of ileus, patient has hyperactive bowel sounds and this is less likely. + Nausea vomiting probably secondary to gastritis + Hypokalemia + T wave inversion on ECG + Hypomagnesemia + Anion gap metabolic acidosis + Dehydration + Dysphasia + Alcohol dependence - Admit to telemetry - Continuous telemetry monitoring - Serial troponin and ECG, one more set - Replete potassium additionally 40 mEq by mouth, repeat labs in 4 hours - Replete her magnesium - Check phosphate today tomorrow - By mouth thiamine, folic acid - Hydration - Protonix 40 mg IV twice a day - When necessary Zofran - Ativan 1 mg by mouth twice a day, when necessary IV Ativan according to CIWA score - Swallow evaluation - GI consult for dysphasia and abdominal pain with suspected gastritis - DVT prophylaxis
[2017-11-28] MEDS ORDERED: FOLIC ACID1 M1 PO (20:40)
[2017-11-28 21:50] VITALS: BP 100/56
[2017-11-28 22:00] VITALS: BP 100/56
--- NOTE | 2017-11-29 01:33 | Admission Certification ---
Admission Certification Certification Statement - As attending physician, I certify that at the time of - admission, based on clinical presentation, severity of - symptoms, need for further diagnostic testing and - therapeutic interventions, and risk of adverse outcomes - without in-hospital treatment, in my clinical assessment, - this patient requires an acute hospital stay for a minimum - of two nights or longer. I have also considered psychsocial - factors such as support system, advanced age, financial - issues, cognitive issues, and failed out-patient treatments, - past re-admission history, safety of patient, and lack of - compliance as applicable. Specific rationale supporting this admission is: Electrolyte abnormality, ECG changes, abdominal pain
[2017-11-29 06:30] VITALS: BP 100/60
[2017-11-29 07:44] VITALS: BP 100/60
[2017-11-29 08:28] LABS: ABSOLUTE BASOPHIL COUNT 0 /CUMM (0.0-0.2); ABSOLUTE EOSINOPHIL COUNT 0.2 /CUMM (0.0-0.7); ABSOLUTE GRANULOCYTE CT 2.9 /CUMM (1.4-6.5); ABSOLUTE LYMPH COUNT 1.1 /CUMM (1.2-3.4); ABSOLUTE MONOCYTE COUNT 0.5 /CUMM (0.10-0.60); BASOPHIL % 0.9 % (0.0-2.0); EOSINOPHIL % 4.1 % (0-5); GRANULOCYTE % 61.8 % (42.2-75.2); MEAN CORPUSCULAR HGB 33.2 PG (27.0-31.0); MEAN CORPUSCULAR HGB CONC 34.2 G/DL (33.0-37.0); MEAN PLATELET VOLUME 8.4 FL (7.4-10.4); PLATELET COUNT 199 /CUMM (130-400); RBC DISTRIBUTION WIDTH 14.4 % (11.5-14.5); RED BLOOD CELL CT 3.22 /CUMM (4.20-5.40); WHITE BLOOD CELL COUNT 4.7 /CUMM (4.8-10.8)
[2017-11-29 08:56] LABS: HEMATOCRIT 31.2 % (37-47)
--- NOTE | 2017-11-29 14:03 | Cons- Gastroenterology ---
General Information and HPI Consulting Request Date of Consult: 11/29/17 Requested By: Eugenio Silva MD Reason for Consult: 1. Dysphagia 2. ? Ileus 3. Alcohol Abuse Source of Information: patient, Electronic Medical Record Exam Limitations: no limitations History of Present Illness: 67 YO F, PMH significant for a past medical history of alcohol abuse, acute pancreatitis, GERD, hypertension, hyperlipidemia and rib fractures. Patient was admitted with a chief complaint of difficulty in abdominal distention, abdominal pain, nausea, and dysphasia for 4 days. She has been unable to pass gas or have a bowel movement. She also reports that she has been unable to tolerate liquids including Ensure. She has had no vomiting. She has had no fever or shaking chills. She has had no melena nor bright red blood per rectum. Although she has been hungry she has been unable to eat. She has had an unintentional weight loss of 5 pounds over the last couple of weeks. Patient has a history of alcohol abuse and was admitted in September 2017 with acute alcoholic pancreatitis. Patient drinks 3-4 shots of hard liquor daily and has been doing this for the past 4 weeks. Her last drink was 4 days prior to admission. However, she has been binge drinking for most of her adult life. Patient had a CT scan on admission the results are as follows. FINDINGS: LUNG BASES: The visualized lung bases are unremarkable. LIVER, GALLBLADDER, AND BILIARY TREE: The liver is normal in size, shape, and diffuse attenuation. No focal hepatic lesion or biliary ductal dilatation is present. The gallbladder is unremarkable with no evidence of radiopaque gallstones, gallbladder wall thickening, or obvious pericholecystic inflammatory changes. PANCREAS: Unremarkable. SPLEEN: Unremarkable. ADRENAL GLANDS: Unremarkable. KIDNEYS AND URETERS: The kidneys are normal in size, shape, and attenuation. No hydronephrosis, hydroureter, or calculi seen. No perinephric stranding. BLADDER: Unremarkable. GASTROINTESTINAL TRACT: Nondistended colon is noted. There are multiple small small bowel nondistended small air-fluid levels. These are nonspecific. The stomach is nondistended. No free air or free fluid seen. Appendix is not seen with certainty. ABDOMINAL WALL: No significant hernia is appreciated. LYMPH NODES: Normal. VASCULAR: Unremarkable. PELVIC VISCERA: The uterus is anteverted and slightly bulky in the fundal region. This could be secondary to fibroid disease which is not well visualized on this exam. No free fluid. No adnexal mass. No abnormal pelvic lymph nodes seen. OSSEOUS STRUCTURES: There are degenerative disc changes with vacuum disc phenomena L4-L5 disc level. Mild spondylosis seen at L4-L5 disc level. No lytic or sclerotic process is noted. IMPRESSION: Nonspecific small air-fluid levels seen in small bowel. Normal colon and stomach. Question early small bowel ileus. No free air free fluid. Diffuse hepatic steatosis. Slightly bulky uterine fundus. Question fibroid disease. Correlate with ultrasound if clinically indicated. FINDINGS: LUNG BASES: The visualized lung bases are unremarkable. LIVER, GALLBLADDER, AND BILIARY TREE: The liver is normal in size, shape, and diffuse attenuation. No focal hepatic lesion or biliary ductal dilatation is present. The gallbladder is unremarkable with no evidence of radiopaque gallstones, gallbladder wall thickening, or obvious pericholecystic inflammatory changes. PANCREAS: Unremarkable. SPLEEN: Unremarkable. ADRENAL GLANDS: Unremarkable. KIDNEYS AND URETERS: The kidneys are normal in size, shape, and attenuation. No hydronephrosis, hydroureter, or calculi seen. No perinephric stranding. BLADDER: Unremarkable. GASTROINTESTINAL TRACT: Nondistended colon is noted. There are multiple small small bowel nondistended small air-fluid levels. These are nonspecific. The stomach is nondistended. No free air or free fluid seen. Appendix is not seen with certainty. ABDOMINAL WALL: No significant hernia is appreciated. LYMPH NODES: Normal. VASCULAR: Unremarkable. PELVIC VISCERA: The uterus is anteverted and slightly bulky in the fundal region. This could be secondary to fibroid disease which is not well visualized on this exam. No free fluid. No adnexal mass. No abnormal pelvic lymph nodes seen. OSSEOUS STRUCTURES: There are degenerative disc changes with vacuum disc phenomena L4-L5 disc level. Mild spondylosis seen at L4-L5 disc level. No lytic or sclerotic process is noted. IMPRESSION: Nonspecific small air-fluid levels seen in small bowel. Normal colon and stomach. Question early small bowel ileus. No free air free fluid. Diffuse hepatic steatosis. Slightly bulky uterine fundus. Question fibroid disease. Correlate with ultrasound if clinically indicated. Patient is now tolerating a diet. She reports that she also has had several bowel movements. She reports that she has had multiple episodes where she is unable to eat. She points to the cricopharyngeal region where she feels that food gets stuck. However, she currently is no longer having any dysphagia. Allergies/Medications Allergies: Coded Allergies: No Known Allergies (11/28/17) Home Med List: Folic Acid 1 MG TABLET 1 TAB PO DAILY supplement (Reported) Hyoscyamine (Levsin) 0.5 MG/ML AMPUL 0.125 MG PO Q4 HRS NEEDED PRN GI UPSET . Multiple Vitamin (Multivitamins) 1 EACH TABLET 1 TAB PO DAILY SUPPLEMENT ( Reported) Oxycodone HCl/Acetaminophen (Percocet 5-325 MG Tablet) 5 MG-325 MG TABLET 1 TAB PO Q12 PRN Abdominal pain Pantoprazole Sodium 40 MG TABLET.DR 1 TAB PO DAILY GI . Current Medications: Current Medications Sig/Ella Start time Last Medication Dose Route Stop Time Status Admin Acetaminophen 1,000 MG Q6P PRN 11/28 2130 AC IV Acetaminophen 0 .STK-MED ONE 11/28 1824 DC IV Acetaminophen 1,000 MG ONCE ONE 11/[address] 11/28 N/A 1 UNIT IV 11/28 1829 1838 Cyanocobalamin/ 1 BAG ONCE ONE 11/28 2359 DC 11/29 Thiamine/Pyridoxine IV 11/29 0758 0225 Dextrose/Water 1,000 ML Enoxaparin Sodium 40 MG DAILY 11/29 09 AC 11/29 SC 0806 Folic Acid 1 MG DAILY 11/29 0900 AC 11/29 PO 0806 Ketorolac 0 .STK-MED ONE 11/28 2034 DC Tromethamine .ROUTE Ketorolac 15 MG ONCE ONE 11/28 2030 DC 11/28 Tromethamine IV 11/28 Lorazepam 0 .STK-MED ONE 11/28 2206 DC PO Lorazepam 1 MG BID 11/28 2121 AC 11/29 PO 0807 Magnesium Sulfate 1 GM Q2H 11/28 2130 DC 11/29 Dextrose/Water 100 ML IV 11/29 0129 0030 Multivitamins 1 TAB DAILY 11/29 0900 AC 11/29 PO 0806 Nicotine 7 MG Q24 11/29 0900 AC 11/29 TOP 0806 Nystatin 1 SHANTEL BID 11/29 0900 AC 11/29 TOP 1332 Ondansetron HCl 4 MG Q8P PRN 11/28 2130 AC IV Ondansetron HCl 0 .STK-MED ONE 11/28 1825 DC .ROUTE Ondansetron HCl 4 MG ONCE ONE 11/28 1815 DC 11/28 IV 11/28 1816 1838 Oxycodone/ 1 TAB Q12 PRN 11/28 2129 AC Acetaminophen PO Pantoprazole Sodium 40 MG BID 11/29 0900 AC 11/29 IV 0807 Pantoprazole Sodium 0 .STK-MED ONE 11/28 1825 DC IV Pantoprazole Sodium 40 MG ONCE ONE 11/28 1815 DC 11/28 IV 11/28 1816 1838 Potassium Chloride 40 MEQ ONCE ONE 11/28 2215 DC 11/28 PO 11/28 2216 2215 Potassium Chloride 0 .STK-MED ONE 11/28 221 DC PO Potassium Chloride 0 .STK-MED ONE 11/28 2210 DC PO Potassium Chloride 40 MEQ Q10H 11/28 2130 AC 11/29 Sodium Chloride 1,000 ML IV 0806 Potassium Chloride 0 .STK-MED ONE 11/28 1917 DC PO Potassium Chloride 0 .STK-MED ONE 11/28 1913 DC PO Potassium Chloride 40 MEQ ONCE ONE 11/28 1845 DC 11/28 Sodium Chloride 1,000 ML IV 11/29 0244 1913 Potassium Chloride 20 MEQ ONCE ONE 11/28 1830 CAN IV 11/28 1831 Potassium Chloride 40 MEQ ONCE ONE 11/28 1830 DC 11/28 PO 11/28 1831 1927 Sodium Chloride 500 ML BOLUS ONE 11/28 2130 DC 11/28 IV 11/28 2229 2209 Sodium Chloride 1,000 ML BOLUS ONE 11/28 1815 CAN IV 11/28 191 Thiamine HCl 100 MG DAILY 11/28 220 AC 11/29 PO 0806 Past History Travel History Traveled to [place] past 21 day No Medical History Blood Transfusion Hx: No Neurological: NONE EENT: NONE Cardiovascular: hypertension, hyperlipidemia, PT DENIES HX OF HTN & >CHOL. 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 self Services at Home: None Primary Language: Vietnamese Smoking Status: Current Everyday Smoker ETOH Use: alcoholic Illicit Drug Use: denies illicit drug use Functional Ability ADLs Independent: dressing, eating, toileting, bathing. Ambulation: independent Review of Systems Review of Systems Constitutional: Reports: no symptoms. EENTM: Reports: no symptoms. Cardiovascular: Reports: no symptoms. Respiratory: Reports: no symptoms. GI: Reports: see HPI. Genitourinary: Reports: no symptoms. Musculoskeletal: Reports: no symptoms. Skin: Reports: no symptoms. Neurological/Psychological: Reports: no symptoms. Hematologic/Endocrine: Reports: no symptoms. Exam & Diagnostic Data Vital Signs and I&O Vital Signs Date Time Temp Pulse Resp B/P B/P Pulse O2 O2 Flow FiO2 Mean Ox Delivery Rate 11/29 0744 75 100/60 11/29 0630 97.7 75 20 100/60 96 11/28 2255 Room Air 11/28 2200 97.8 81 18 100/56 100 Room Air 11/28 2150 97.8 81 18 100/56 11/28 2150 97.8 81 18 100/56 100 Room Air 11/28 1935 98.1 84 18 115/61 100 Room Air 11/28 1725 98.0 102 20 130/85 100 Room Air Intake & Output 11/29 1600 11/29 0400 11/28 1600 11/28 0400 11/27 1600 11/27 0400 Intake Total 1570 720 Output Total Balance 1570 720 Intake, IV 1350 500 Intake, Oral 220 220 Number 1 Bowel Movements Patient 105 lb 105 lb Weight Weight Bed scale Bed scale Measurement Method Physical Exam General Appearance: no apparent distress, alert Head: atraumatic, normal appearance Eyes: Bilateral: normal appearance. Ears, Nose, Throat: normal pharynx, hearing grossly normal Neck: normal inspection, supple Respiratory: normal breath sounds, chest non-tender, no respiratory distress, lungs clear Cardiovascular: regular rate/rhythm, Normal S1 and S2 without Rub, Murmur or Gallop Gastrointestinal: normal bowel sounds, soft, non-tender, no organomegaly Extremities: normal inspection Neurologic/Psych: awake, alert, oriented x 3 Skin: normal color, warm/dry Results Pertinent Lab Results: Laboratory Tests 11/29 11/29 0920 0640 Chemistry Sodium (137 - 145 mmol/L) 138 Potassium (3.5 - 5.1 mmol/L) 4.3 Chloride (98 - 107 mmol/L) 109 H Carbon Dioxide (22 - 30 mmol/L) 19 L Anion Gap (5 - 16) 11 BUN (7 - 17 mg/dL) 7 Creatinine (0.5 - 1.0 mg/dL) 0.6 Estimated GFR (>60 ml/min) > 60 BUN/Creatinine Ratio (7 - 25 %) 11.7 Phosphorus (2.5 - 4.5 mg/dL) 2.0 L Magnesium (1.6 - 2.3 mg/dL) 2.0 Hematology CBC w Diff NO MAN DIFF REQ WBC (4.8 - 10.8 /CUMM) 4.7 L RBC (4.20 - 5.40 /CUMM) 3.22 L Hgb (12.0 - 16.0 G/DL) 10.7 L Hct (37 - 47 %) 31.2 L MCV (81.0 - 99.0 FL) 97.0 MCH (27.0 - 31.0 PG) 33.2 H MCHC (33.0 - 37.0 G/DL) 34.2 RDW (11.5 - 14.5 %) 14.4 Plt Count (130 - 400 /CUMM) 199 MPV (7.4 - 10.4 FL) 8.4 Gran % (42.2 - 75.2 %) 61.8 Lymphocytes % (20.5 - 51.1 %) 22.5 Monocytes % (1.7 - 9.3 %) 10.7 H Eosinophils % (0 - 5 %) 4.1 Basophils % (0.0 - 2.0 %) 0.9 Absolute Granulocytes (1.4 - 6.5 /CUMM) 2.9 Absolute Lymphocytes (1.2 - 3.4 /CUMM) 1.1 L Absolute Monocytes (0.10 - 0.60 /CUMM) 0.5 Absolute Eosinophils (0.0 - 0.7 /CUMM) 0.2 Absolute Basophils (0.0 - 0.2 /CUMM) 0 Urines Urine Color (YEL,AMB,STR) YEL Urine Clarity (CLEAR) HAZY H Urine pH (5.0 - 8.0) 6.5 Ur Specific [place] (1.001 - 1.035) 1.010 Urine Protein (NEG,<30 MG/DL) TRACE H Urine Ketones (NEG) TRACE H Urine Nitrite (NEG) NEG Urine Bilirubin (NEG) NEG@ICTO Urine Urobilinogen (0.1 - 1.0 EU/dl) 1.0 Ur Leukocyte Esterase (NEG) NEG Ur Microscopic SEDIMENT EXAMINED Urine RBC (0 - 5 /HPF) RARE Urine WBC (0 - 2 /HPF) RARE Ur Epithelial Cells (NONE,FEW) MANY H Urine Bacteria (NEG/NONE) FEW H Micro UA Comment BUDDING YEAST H Urine Hemoglobin (NEG) NEG Urine Glucose (N MG/DL) NEG 11/29 Chemistry Sodium (137 - 145 mmol/L) 137 Potassium (3.5 - 5.1 mmol/L) 4.3 Chloride (98 - 107 mmol/L) 108 H Carbon Dioxide (22 - 30 mmol/L) 18 L Anion Gap (5 - 16) 12 BUN (7 - 17 mg/dL) 7 Creatinine (0.5 - 1.0 mg/dL) 0.7 Estimated GFR (>60 ml/min) > 60 BUN/Creatinine Ratio (7 - 25 %) 10.0 Lactic Acid (0.7 - 2.1 mmol/L) Cancelled 1.1 Magnesium (1.6 - 2.3 mg/dL) 1.6 11/28 1746 Chemistry Sodium (137 - 145 mmol/L) 140 Potassium (3.5 - 5.1 mmol/L) 2.6 *L Chloride (98 - 107 mmol/L) 99 Carbon Dioxide (22 - 30 mmol/L) 18 L Anion Gap (5 - 16) 23 H BUN (7 - 17 mg/dL) 7 Creatinine (0.5 - 1.0 mg/dL) 0.7 Estimated GFR (>60 ml/min) > 60 BUN/Creatinine Ratio (7 - 25 %) 10.0 Glucose (65 - 99 mg/dL) 103 H Calcium (8.4 - 10.2 mg/dL) 9.1 Phosphorus (2.5 - 4.5 mg/dL) 3.4 Magnesium (1.6 - 2.3 mg/dL) 1.1 L Total Bilirubin (0.2 - 1.3 mg/dL) 0.8 AST (14 - 36 U/L) 69 H ALT (9 - 52 U/L) 42 Alkaline Phosphatase (<127 U/L) 131 H Troponin I (< 0.11 ng/ml) < 0.01 Total Protein (6.3 - 8.2 g/dL) 7.0 Albumin (3.5 - 5.0 g/dL) 4.0 Globulin (1.9 - 4.2 gm/dL) 3.0 Albumin/Globulin Ratio (1.1 - 2.2 %) 1.3 Triglycerides (<150 mg/dL) 136 Cholesterol (<200 MG/DL) 156 LDL Cholesterol, Calc (65 - 129 mg/dL) 63 L HDL Cholesterol (40 - 60 mg/dL) 66 H Cholesterol/HDL Ratio (0.00 - 4.23 %) 2.4 Lipase (23 - 300 U/L) < 10 L Coagulation D-Dimer High Sensitivty (0 - 243 ng/ml) < 200 Hematology CBC w Diff NO MAN DIFF REQ WBC (4.8 - 10.8 /CUMM) 6.5 RBC (4.20 - 5.40 /CUMM) 3.98 L Hgb (12.0 - 16.0 G/DL) 13.0 Hct (37 - 47 %) 39.1 MCV (81.0 - 99.0 FL) 98.2 MCH (27.0 - 31.0 PG) 32.8 H MCHC (33.0 - 37.0 G/DL) 33.4 RDW (11.5 - 14.5 %) 15.0 H Plt Count (130 - 400 /CUMM) 266 MPV (7.4 - 10.4 FL) 7.6 Gran % (42.2 - 75.2 %) 70.6 Lymphocytes % (20.5 - 51.1 %) 17.1 L Monocytes % (1.7 - 9.3 %) 8.6 Eosinophils % (0 - 5 %) 2.6 Basophils % (0.0 - 2.0 %) 1.1 Absolute Granulocytes (1.4 - 6.5 /CUMM) 4.6 Absolute Lymphocytes (1.2 - 3.4 /CUMM) 1.1 L Absolute Monocytes (0.10 - 0.60 /CUMM) 0.6 Absolute Eosinophils (0.0 - 0.7 /CUMM) 0.2 Absolute Basophils (0.0 - 0.2 /CUMM) 0.1 Toxicology Serum Alcohol (<10 MG/DL) < 10.0 Assessment/Plan Assessment/Recommendations: IMPRESSION: 1. Alcohol Abuse 2. Dysphagia 3. Abnormal CT Scan of the Abdomen and Pelvis -- Findings are non-specific and not consistent with significant ileus or pseudo-obstruction 4. Hepatic Steatosis -- likely related to alcohol abuse 5. Drop in H/H -- ? PUD, ? erosive esophagitis. No signs of underlying cirrhosis with normal albumin and platelets RECOMMENDATIONS: 1. NPO after midnight 2. EGD tomorrow. Risks and benefits discussed with patient who is eager to have EGD because she is concerned about the possibility of esophageal cancer. 3. Continue Protonix 4. Obtain liver-associated enzymes, albumin, coags (PT/INR) as well as calcium if one is concerned both about ongoing alcohol abuse as well as possible ileus Consult Acknowledgment - Thank you for your consult request.
[2017-11-29 14:26] VITALS: BP 98/60
--- NOTE | 2017-11-29 15:17 | PN- Att Addend ---
Attending Addendum Attending Brief Note 67F PMH HTN, GERD, HLD, history of pancreatitis, history of alcoholism admitted for intractable epigastric pain and esophageal dysphagia, with recent history of alcohol abuse. Patient reports having been worked up for her dysphagia on several occasions, last EGD 3 years ago, has had esophograms and barium swallows before. She was able to tolerate PO today without vomiting and feels much better than yesterday. The sticky feeling in her chest is improving. She reports having difficulty obtaining her medications due to not having Medicaid. Potassium and magnesium have normalized. 13 point ROS negative AFVSS NAD NCAT MMM Supple RRR CTAB Soft, NTND No c/c/e Pulses intact A&Ox3 no focal deficits Current Medications Sig/Ella Start time Last Medication Dose Route Stop Time Status Admin Acetaminophen 1,000 MG Q6P PRN 11/280 AC IV Acetaminophen 0 .STK-MED ONE 11/28 1824 DC IV Acetaminophen 1,000 MG ONCE ONE 11/28 1815 DC 11/28 N/A 1 UNIT IV 11/28 1829 1838 Cyanocobalamin/ 1 BAG ONCE ONE 11/28 2359 DC 11/29 Thiamine/Pyridoxine IV 11/29 0758 0225 Dextrose/Water 1,000 ML Enoxaparin Sodium 40 MG DAILY 11/29 09 AC 11/29 SC 0806 Folic Acid 1 MG DAILY 11/29 09 AC 11/29 PO 0806 Ketorolac 0 .STK-MED ONE 11/28 2034 DC Tromethamine .ROUTE Ketorolac 15 MG ONCE ONE 11/28 2030 DC 11/28 Tromethamine IV 11/28 Lorazepam 0 .STK-MED ONE 11/28 2206 DC PO Lorazepam 1 MG BID 11/28 2121 AC 11/29 PO 0807 Magnesium Sulfate 1 GM Q2H 11/28 2130 DC 11/29 Dextrose/Water 100 ML IV 11/29 0129 0030 Multivitamins 1 TAB DAILY 11/29 09 AC 11/29 PO 0806 Nicotine 7 MG Q24 11/29 0900 AC 11/29 TOP 0806 Nystatin 1 SHANTEL BID 11/29 0900 AC 11/29 TOP 1332 Ondansetron HCl 4 MG Q8P PRN 11/28 2130 AC IV Ondansetron HCl 0 .STK-MED ONE 11/28 1825 DC .ROUTE Ondansetron HCl 4 MG ONCE ONE 11/28 1815 DC 11/28 IV 11/28 1816 1838 Oxycodone/ 1 TAB Q12 PRN 11/28 2129 AC Acetaminophen PO Pantoprazole Sodium 40 MG BID 11/29 0900 AC 11/29 IV 0807 Pantoprazole Sodium 0 .STK-MED ONE 11/28 1825 DC IV Pantoprazole Sodium 40 MG ONCE ONE 11/28 181 DC 11/28 IV 11/28 181 1838 Potassium Chloride 40 MEQ ONCE ONE 11/28 221 DC 11/28 PO 11/28 221 221 Potassium Chloride 0 .STK-MED ONE 11/28 221 DC PO Potassium Chloride 0 .STK-MED ONE 11/28 2210 DC PO Potassium Chloride 40 MEQ Q10H 11/28 213 AC 11/29 Sodium Chloride 1,000 ML IV 08 Potassium Chloride 0 .STK-MED ONE 11/28 1917 DC PO Potassium Chloride 0 .STK-MED ONE 11/28 1913 DC PO Potassium Chloride 40 MEQ ONCE ONE 11/28 1845 DC 11/28 Sodium Chloride 1,000 ML IV 11/29 0244 1913 Potassium Chloride 20 MEQ ONCE ONE 11/28 1830 CAN IV 11/28 1831 Potassium Chloride 40 MEQ ONCE ONE 11/28 1830 DC 11/28 PO 11/28 1831 1927 Sodium Chloride 500 ML BOLUS ONE 11/28 2129 DC 11/28 IV 11/28 2229 2209 Sodium Chloride 1,000 ML BOLUS ONE 11/28 1815 CAN IV 11/28 1914 Thiamine HCl 100 MG DAILY 11/28 2199 AC 11/29 PO 0806 Laboratory Tests 11/29 11/29 0920 0640 Chemistry Sodium (137 - 145 mmol/L) 138 Potassium (3.5 - 5.1 mmol/L) 4.3 Chloride (98 - 107 mmol/L) 109 H Carbon Dioxide (22 - 30 mmol/L) 19 L Anion Gap (5 - 16) 11 BUN (7 - 17 mg/dL) 7 Creatinine (0.5 - 1.0 mg/dL) 0.6 Estimated GFR (>60 ml/min) > 60 BUN/Creatinine Ratio (7 - 25 %) 11.7 Phosphorus (2.5 - 4.5 mg/dL) 2.0 L Magnesium (1.6 - 2.3 mg/dL) 2.0 Hematology CBC w Diff NO MAN DIFF REQ WBC (4.8 - 10.8 /CUMM) 4.7 L RBC (4.20 - 5.40 /CUMM) 3.22 L Hgb (12.0 - 16.0 G/DL) 10.7 L Hct (37 - 47 %) 31.2 L MCV (81.0 - 99.0 FL) 97.0 MCH (27.0 - 31.0 PG) 33.2 H MCHC (33.0 - 37.0 G/DL) 34.2 RDW (11.5 - 14.5 %) 14.4 Plt Count (130 - 400 /CUMM) 199 MPV (7.4 - 10.4 FL) 8.4 Gran % (42.2 - 75.2 %) 61.8 Lymphocytes % (20.5 - 51.1 %) 22.5 Monocytes % (1.7 - 9.3 %) 10.7 H Eosinophils % (0 - 5 %) 4.1 Basophils % (0.0 - 2.0 %) 0.9 Absolute Granulocytes (1.4 - 6.5 /CUMM) 2.9 Absolute Lymphocytes (1.2 - 3.4 /CUMM) 1.1 L Absolute Monocytes (0.10 - 0.60 /CUMM) 0.5 Absolute Eosinophils (0.0 - 0.7 /CUMM) 0.2 Absolute Basophils (0.0 - 0.2 /CUMM) 0 Urines Urine Color (YEL,AMB,STR) YEL Urine Clarity (CLEAR) HAZY H Urine pH (5.0 - 8.0) 6.5 Ur Specific [place] (1.001 - 1.035) 1.010 Urine Protein (NEG,<30 MG/DL) TRACE H Urine Ketones (NEG) TRACE H Urine Nitrite (NEG) NEG Urine Bilirubin (NEG) NEG@ICTO Urine Urobilinogen (0.1 - 1.0 EU/dl) 1.0 Ur Leukocyte Esterase (NEG) NEG Ur Microscopic SEDIMENT EXAMINED Urine RBC (0 - 5 /HPF) RARE Urine WBC (0 - 2 /HPF) RARE Ur Epithelial Cells (NONE,FEW) MANY H Urine Bacteria (NEG/NONE) FEW H Micro UA Comment BUDDING YEAST H Urine Hemoglobin (NEG) NEG Urine Glucose (N MG/DL) NEG 11/29 174 Chemistry Sodium (137 - 145 mmol/L) 137 Potassium (3.5 - 5.1 mmol/L) 4.3 Chloride (98 - 107 mmol/L) 108 H Carbon Dioxide (22 - 30 mmol/L) 18 L Anion Gap (5 - 16) 12 BUN (7 - 17 mg/dL) 7 Creatinine (0.5 - 1.0 mg/dL) 0.7 Estimated GFR (>60 ml/min) > 60 BUN/Creatinine Ratio (7 - 25 %) 10.0 Lactic Acid (0.7 - 2.1 mmol/L) Cancelled 1.1 Magnesium (1.6 - 2.3 mg/dL) 1.6 11/28 1747 Chemistry Sodium (137 - 145 mmol/L) 140 Potassium (3.5 - 5.1 mmol/L) 2.6 *L Chloride (98 - 107 mmol/L) 99 Carbon Dioxide (22 - 30 mmol/L) 18 L Anion Gap (5 - 16) 23 H BUN (7 - 17 mg/dL) 7 Creatinine (0.5 - 1.0 mg/dL) 0.7 Estimated GFR (>60 ml/min) > 60 BUN/Creatinine Ratio (7 - 25 %) 10.0 Glucose (65 - 99 mg/dL) 103 H Calcium (8.4 - 10.2 mg/dL) 9.1 Phosphorus (2.5 - 4.5 mg/dL) 3.4 Magnesium (1.6 - 2.3 mg/dL) 1.1 L Total Bilirubin (0.2 - 1.3 mg/dL) 0.8 AST (14 - 36 U/L) 69 H ALT (9 - 52 U/L) 42 Alkaline Phosphatase (<127 U/L) 131 H Troponin I (< 0.11 ng/ml) < 0.01 Total Protein (6.3 - 8.2 g/dL) 7.0 Albumin (3.5 - 5.0 g/dL) 4.0 Globulin (1.9 - 4.2 gm/dL) 3.0 Albumin/Globulin Ratio (1.1 - 2.2 %) 1.3 Triglycerides (<150 mg/dL) 136 Cholesterol (<200 MG/DL) 156 LDL Cholesterol, Calc (65 - 129 mg/dL) 63 L HDL Cholesterol (40 - 60 mg/dL) 66 H Cholesterol/HDL Ratio (0.00 - 4.23 %) 2.4 Lipase (23 - 300 U/L) < 10 L Coagulation D-Dimer High Sensitivty (0 - 243 ng/ml) < 200 Hematology CBC w Diff NO MAN DIFF REQ WBC (4.8 - 10.8 /CUMM) 6.5 RBC (4.20 - 5.40 /CUMM) 3.98 L Hgb (12.0 - 16.0 G/DL) 13.0 Hct (37 - 47 %) 39.1 MCV (81.0 - 99.0 FL) 98.2 MCH (27.0 - 31.0 PG) 32.8 H MCHC (33.0 - 37.0 G/DL) 33.4 RDW (11.5 - 14.5 %) 15.0 H Plt Count (130 - 400 /CUMM) 266 MPV (7.4 - 10.4 FL) 7.6 Gran % (42.2 - 75.2 %) 70.6 Lymphocytes % (20.5 - 51.1 %) 17.1 L Monocytes % (1.7 - 9.3 %) 8.6 Eosinophils % (0 - 5 %) 2.6 Basophils % (0.0 - 2.0 %) 1.1 Absolute Granulocytes (1.4 - 6.5 /CUMM) 4.6 Absolute Lymphocytes (1.2 - 3.4 /CUMM) 1.1 L Absolute Monocytes (0.10 - 0.60 /CUMM) 0.6 Absolute Eosinophils (0.0 - 0.7 /CUMM) 0.2 Absolute Basophils (0.0 - 0.2 /CUMM) 0.1 Toxicology Serum Alcohol (<10 MG/DL) < 10.0 Vital Signs Date Time Temp Pulse Resp B/P B/P Pulse O2 O2 Flow FiO2 Mean Ox Delivery Rate 11/29 1426 98.4 87 18 98/60 99 Room Air 11/29 0744 75 100/60 11/29 0630 97.7 75 20 100/60 96 11/28 2255 Room Air 11/28 2200 97.8 81 18 100/56 100 Room Air 11/28 2150 97.8 81 18 100/56 11/280 97.8 81 18 100/56 100 Room Air 11/28 1935 98.1 84 18 115/61 100 Room Air 11/28 1725 98.0 102 20 130/85 100 Room Air Intake & Output 11/29 1600 11/29 0800 11/29 0000 Intake Total 1400 1570 720 Output Total Balance 1400 1570 720 Intake, IV 1050 1350 500 Intake, Oral 350 220 220 Number 1 Bowel Movements Patient 47.429 kg 47.429 kg Weight Weight Bed scale Bed scale Measurement Method 1. Esophageal dysphagia 2. Intractable epigastric pain 3. Malnutrition and dehydration 4. Hypokalemia (resolved) 5. Hypomagnesemia (resolved) 6. Alcohol abuse disorder 7. Acute EKG changes Plan - Continue on telemetry - Repeat EKG - Cardiology consult - Continue current diet - Speech therapy evaluation - Continue Protonix - Ativan PRN CIWA, no evidence of withdrawal so no standing dose - Continue home medications - DVT PPx
[2017-11-29 18:12] LABS: PT 15.2 SEC (9.4-12.5)
[2017-11-29 22:07] VITALS: BP 96/58
[2017-11-30 06:58] VITALS: BP 94/54
--- NOTE | 2017-11-30 07:29 | PN- Housestaff ---
Jason ATKINSON,Abbi 11/30/17 0729: Subjective Follow-up For: -Dysphagia, abdominal pain, nausea, vomiting; possible gastroenteritis / esophagitis versus esophageal disease -Hypokalemia / hypomagnesemia, likely multifactorial secondary to decreased PO intake, alcohol use, and malnutrition -Anion gap metabolic acidosis -Questionable early ileus -Transaminitis, likely due to alcohol use -History of EtOH Abuse -Current Smoker, 1/2 ppd -History of alcohol / hypertriglyceride induced pancreatitis -GERD -Chronic pain, on percocet Tele-Events Since Last Visit: No overnight events Subjective: Patient was seen and examined, blood pressure running low 94/51, CIWA 0, she is n.p.o. for EGD today, denies any complaints Review of Systems Constitutional: Reports: see HPI. Objective Last 24 Hrs of Vital Signs/I&O Vital Signs Date Time Temp Pulse Resp B/P B/P Pulse O2 O2 Flow FiO2 Mean Ox Delivery Rate 11/30 1000 72 11/30 0800 97.7 82 18 11/30 0800 99 Room Air 11/30 0658 97.7 82 18 94/54 99 Room Air 11/29 2207 97.9 80 18 96/58 98 Room Air 11/29 1426 98.4 87 18 98/60 99 Room Air Intake & Output 11/30 1600 11/30 0800 11/30 0000 Intake Total 700 480 Output Total 400 Balance 300 480 Intake, IV 700 300 Intake, Oral 180 Number 1 Bowel Movements Output, Urine 400 Patient 117 lb Weight Weight Bed scale Measurement Method Physical Exam General Appearance: Alert, Oriented X3, Cooperative, No Acute Distress HEENT: Atraumatic, PERRLA, EOMI Cardiovascular: Normal S1, Normal S2 Lungs: Clear to Auscultation Abdomen: Normal Bowel Sounds, Soft, No Tenderness Neurological: Normal Speech, Strength at 5/5 X4 Ext, Normal Tone, Sensation Intact, Cranial Nerves 3-12 NL Extremities: No Clubbing, No Cyanosis, No Edema Assessment/Plan Assessment: 67 YO F, smoker (5-6 cigarettes/d) with a PMH of HTN, HLD, acute pancreatitis, GERD, alcohol abuse and rib fractures came to ED with the chief complaint of difficulty in swelling, nausea, abdominal pain for last 4 days and headache since yesterday. 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 -Swallow evaluation +/- modified barium swallow -Monitor serum chemistry and Mag, -Pain control with acetaminophen -N.p.o. for EGD, will advance his diet after worst as tolerated -DVT PPx with lovenox -DNR/DNI Problem List: 1. Difficulty in swallowing Pain Ratin Pain Location: BODY ACHES Pain Goal: Pain 4 or less Pain Plan: PATHWAY Tomorrow's Labs & Rationales: CBC BEP Yasmeen Bojorquez 11/30/17 1144: Attending MD Review Statement Attending Statement Attending MD Statement: examined this patient, discuss w/resident/PA/BASE PLY HAND, agreed w/resident/PA/BASE PLY HAND, discussed with family, reviewed EMR data (avail), discussed with nursing, discussed with case mgmt, reviewed images, amended to note Attending Assessment/Plan: 67 o/f with pmh of alcohol abuse comes with c/o dyphagia and abdominal discomfort in epigastric region. Patient is for planned EGD today as per GI. She is NPO and can advacne diet if ok with GI. Contniue current care
[2017-11-30 08:02] LABS: ABSOLUTE BASOPHIL COUNT 0 /CUMM (0.0-0.2); ABSOLUTE EOSINOPHIL COUNT 0.1 /CUMM (0.0-0.7); ABSOLUTE GRANULOCYTE CT 3.3 /CUMM (1.4-6.5); ABSOLUTE LYMPH COUNT 0.7 /CUMM (1.2-3.4); ABSOLUTE MONOCYTE COUNT 0.4 /CUMM (0.10-0.60); BASOPHIL % 0.6 % (0.0-2.0); GRANULOCYTE % 71.6 % (42.2-75.2); HEMATOCRIT 32.2 % (37-47); MEAN CORPUSCULAR HGB 33.2 PG (27.0-31.0); MEAN CORPUSCULAR HGB CONC 33.7 G/DL (33.0-37.0); MEAN CORPUSCULAR VOLUME 98.7 FL (81.0-99.0); MEAN PLATELET VOLUME 8.9 FL (7.4-10.4); PLATELET COUNT 175 /CUMM (130-400); RBC DISTRIBUTION WIDTH 14.9 % (11.5-14.5); RED BLOOD CELL CT 3.27 /CUMM (4.20-5.40); WHITE BLOOD CELL COUNT 4.6 /CUMM (4.8-10.8)
--- NOTE | 2017-11-30 12:03 | Proc Note Endoscopy ---
Endoscopy Procedure Medical History: unchanged Mental Status: alert/oriented Heart/Lung Eval Prior to Sedation: within normal limits Candidate for Sedation? Yes Procedure Date: 11/30/17 Procedure Type: EGD w/biopsy [employer] Director: Yasmeen Bojorquez MD ASA Classification: III Indications: 1. Dysphasia 2. Epigastric pain Instrument: diagnostic gastroscope Meds Received: MAC Patient's Tolerance: good Complications: none Extent Reached: second part of duodenum Procedure: Note: Informed consent was obtained prior to procedure. Risks and benefits of procedure were discussed with patient. Potential complications discussed included perforation, bleeding, abdominal pain, and adverse reaction to medications. It was explained that iany or all of these complications could result in the need for extended hospitalization, emergency surgery, transfusion of packed red blood cells (with the risk of HIV or hepatitis virus), intubation with mechanical ventilation, and possible need for antibiotics. It was further explained that an existing tumor polyp or mucosal abnormality might not be identified at the time of the procedure thus resulting in a missed opportunity for early diagnosis and treatment of a gastrointestinal malignancy or disease with possible interval development of a gastrointestinal cancer or other disease with possible worsening of clinical condition in the interval between endoscopies. It was also discussed that complications are not limited to those listed above. Possible alternatives to endoscopic treatment or evaluation were discussed. All questions were answered. Continuous EKG and blood pressure monitors were attached. Supplemental oxygen was provided with O2 Sat monitoring. Patient was placed in the left lateral decubitus position. A surgical timeout was performed. All persons in the room were identified. All concerns were expressed and answered. A bite block was placed in the mouth and sedation was administered by anesthesia and titrated to comfort prior to starting the procedure. The Olympus upper endoscope was advanced under direct vision to the level of the third portion of the duodenum. Esophagus: The esophagus had a normal mucosal vascular pattern throughout its entirety. The GE junction was identified and was normal. The Z line was located at would a 2 cm from the incisors and was nondisplaced. There was evidence of esophageal dyskinesia. The esophagus had a somewhat corkscrew pattern consistent with presbyesophagus. There were no esophageal varices noted. Stomach: The stomach had linear erosions with erythema and wagon-wheel configuration within the antrum and distal body. There were scattered aphthous ulcers as well.. Retroflexed view of the cardiofundic region revealed diffuse edema and nodularity. Multiple biopsies were obtained from this area. Nodularity extended into the proximal body.. There were normal rugae and normal distensibility. The pylorus was patent and easily intubated. Biopsies were obtained from the antrum, angularis, gastric body and lesser curvature to rule out H. Pylori. Duodenum: The duodenum was fully examined from bulb down to the third portion. There was nonspecific edema throughout. With the endoscope in the forward-viewing position, it was slowly withdrawn and all areas were re-inspected and findings are as described previously. Patient tolerated the procedure well. EBL: Minimal Specimens Removed: 1. Antrum, angularis, gastric body and lesser curvature to rule out H. Pylori. 2. Nodularity gastric body and fundus. Findings: 1. Antral gastritis with erosion and aphthous ulceration 2. Nodular gastritis of the fundus and distal gastric body 3. Presbyesophagus Impression: 1. Antral gastritis with erosion and aphthous ulceration 2. Nodular gastritis of the fundus and distal gastric body 3. Presbyesophagus Recommendations: 1. The results of the procedure have been discussed with the patient and their next of kin. All questions have been answered. Patient has been instructed to call the office immediately for nausea, vomiting, abdominal pain, fever or shaking chills or any change in clinical condition. Patient has expressed understanding of discharge instructions and agreed to call for any questions or concerns. Patient has been given written instructions to this effect. 2. Await pathology 3. Patient is tolerating diet is stable for discharge to home. Patient will need follow-up with with me in my office as an outpatient for pathology review and further therapy of ongoing GI issues. 4. Patient should be discharged to home on Protonix 40 mg by mouth every morning to be taken 30-45 minutes before breakfast.
[2017-11-30] MEDS ORDERED: NYSTATIN15 G1 TOP (14:03)
[2017-11-30] MEDS ORDERED: PANTOPRAZOLE SO40 M1 PO (14:03)
[2017-11-30] MEDS ORDERED: LEVSIN0.5 MG/1 M PO (14:03)
--- NOTE | 2017-11-30 14:08 | Patient Discharge Instructions ---
Discharge Instructions General Discharge Information You were seen/treated for: Difficulty swallowing Special Instructions: -Please follow-up with your primary care physician within 1 week after discharge -Please follow up with GI Dr. Landis within 2 weeks after discharge -Please call Dr. Landis's office immediately for any nausea, vomiting, abdominal pain, fever, chills or any change in her clinical condition -You will be contacted by Dr. Landis's office regarding the pathology results of upper endoscopy -Please take Protonix 40 mg every morning 30-45 minutes before breakfast Acute Coronary Syndrome Inclusion Criteria At DC or during hospital stay patient has or had the following: ACS DIAGNOSIS No Discharge Core Measures Meds if any: Prescribed or Continued at Discharge Meds if any: NOT Prescribed or Continued at Discharge Congestive Heart Failure Inclusion Criteria At DC or during hospital stay patient has or had the following: CHF DIAGNOSIS No Discharge Core Measures Meds if any: Prescribed or Continued at Discharge Meds if any: NOT Prescribed or Continued at Discharge Cerebrovascular accident Inclusion Criteria At DC or during hospital stay patient has or had the following: CVA/TIA Diagnosis No Discharge Core Measures Meds if any: Prescribed or Continued at Discharge Meds if any: NOT Prescribed or Continued at Discharge Venous thromboembolism Inclusion Criteria VTE Diagnosis No VTE Type NONE VTE Confirmed by (Test) NONE Discharge Core Measures - Per Current guidelines, there needs to be overlap - treatment for the first 5 days of Warfarin therapy. - If discharged on Warfarin prior to 5 days of - overlap therapy, the patient will need to be - assessed for post discharge needs including - *Post discharge parental anticoagulation - *Warfarin and/or parental anticoagulation education - *Follow up date to check INR post discharge At least 5 days overlap therapy as Inpatient No Meds if any: Prescribed or Continued at Discharge Note: Overlap Therapy is Warfarin and Anticoagulant Meds if any: NOT Prescribed or Continued at Discharge
[2017-11-30 15:07] VITALS: BP 108/54
[2017-11-30 16:00] VITALS: BP 108/54
[2017-11-30 22:14] VITALS: BP 110/72
[2017-12-01 06:23] VITALS: BP 110/60
--- NOTE | 2017-12-01 07:12 | PN- Housestaff ---
Jason ATKINSON,Abbi 12/01/17 0711: Subjective Follow-up For: -Dysphagia, abdominal pain, nausea, vomiting; possible gastroenteritis / esophagitis versus esophageal disease -Hypokalemia / hypomagnesemia, likely multifactorial secondary to decreased PO intake, alcohol use, and malnutrition -Anion gap metabolic acidosis -Questionable early ileus -Transaminitis, likely due to alcohol use -History of EtOH Abuse -Current Smoker, 1/2 ppd -History of alcohol / hypertriglyceride induced pancreatitis -GERD -Chronic pain, on percocet Tele-Events Since Last Visit: Off tele Subjective: The patient was seen and examined, she denies any complaints, vital signs stable , would be going home today Review of Systems Constitutional: Reports: see HPI. Objective Last 24 Hrs of Vital Signs/I&O Vital Signs Date Time Temp Pulse Resp B/P B/P Pulse O2 O2 Flow FiO2 Mean Ox Delivery Rate 12/01 0623 98.3 75 18 110/60 95 Room Air 11/30 2214 98.1 78 17 110/72 98 11/30 1600 97.7 90 18 108/54 11/30 1507 97.5 79 18 108/54 100 11/30 1400 80 Intake & Output 12/01 1600 12/01 0800 12/01 0000 Intake Total 240 Output Total Balance 240 Intake, Oral 240 Patient 111 lb Weight Physical Exam General Appearance: Alert, Oriented X3, Cooperative, No Acute Distress Neck: Supple, No JVD Cardiovascular: Normal S1, Normal S2, No Murmurs Lungs: Clear to Auscultation Abdomen: Normal Bowel Sounds, Soft, No Tenderness Extremities: No Cyanosis, No Edema, Normal Pulses Assessment/Plan Assessment: 67 YO F, smoker (5-6 cigarettes/d) with a PMH of HTN, HLD, acute pancreatitis, GERD, alcohol abuse and rib fractures came to ED with the chief complaint of difficulty in swelling, nausea, abdominal pain for last 4 days and headache since yesterday. 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 Gastric ulcer Pain Ratin Pain Location: N/A Pain Goal: Remain pain free Pain Plan: Pathway Tomorrow's Labs & Rationales: N/A Yasmeen Bojorquez 12/01/17 1123: Attending MD Review Statement Attending Statement Attending MD Statement: examined this patient, discuss w/resident/PA/IRONER, agreed w/resident/PA/IRONER, discussed with family, reviewed EMR data (avail), discussed with nursing, discussed with case mgmt, reviewed images, amended to note Attending Assessment/Plan: Patient with peptic ucler disease. EGD suggetcie fo superficial ulcers. Biopsy taken. Needs to take PPI PO daily and follow up with gastroenetrology in 2 weeks for biopsy results. She is tolerating her diet and medically stbale for discharge. She should avoid NSAIDS in future.
[2017-12-01] MEDS ORDERED: LEVSIN0.5 MG/1 M PO (07:54)
[2017-12-01] MEDS ORDERED: NYSTATIN15 G1 TOP (07:54)
[2017-12-01] MEDS ORDERED: PANTOPRAZOLE SO40 M1 PO (07:54)
--- NOTE | 2017-12-01 10:41 | Discharge Summary ---
See Addendum Visit Information Visit Dates Admission Date: 11/28/17 Discharge Date: 12/01/17 Hospital Course Course Attending Physician: Maryellen ATKINSON,Yasmeen Primary Care Physician: Dr. Gandhi Hospital Course: 67 YO F, smoker (5-6 cigarettes/d) with a PMH of HTN, HLD, acute pancreatitis, GERD, alcohol abuse and rib fractures came to ED with the chief complaint of difficulty in swelling, nausea, abdominal pain for last 4 days and headache since yesterday. According to patient he was in her usual state of health 3-4 days back when she suddenly noticed having difficulty in swallowing, she tried to take liquid insure milk but she couldn't swallow it. She also reported that she is feeling nauseous and bringing some mucus. Patient also reported that she has abdominal pain, continuous, dull and radiating to lower chest bilaterally ED course: Vitals: Temperature 98.0, pulse 102, respiratory rate 20, blood pressure 1:30/85 , oxygen saturation 100% room air Labs: WBC count 6.5, hemoglobin 13.0, hematocrit 39.1, platelet count 266, sodium 140, potassium 2.6, BUN 7, creatinine 0.7, anion gap 23, BUN/creatinine ratio 20.0, glucose 103, calcium 9.1, magnesium 1.1, total bilirubin 0.8, AST 69 , LDL 42, alkaline phosphatase 131, troponin less than 0.01, total protein 7.0, albumin 4.0, lipase less than 10, d-dimer less than 200 Patient received potassium supplementation and normal saline in ED. Hypokalemia with EKG changes: -Her potassium level was 2.6 on admission possibly due to low oral intake and alcohol use. -On admission patient also having nonspecific EKG changes although she is asymptomatic not complaining of any chest pain. -Potassium supplementation and we will check BEP for potassium again. She was admitted to telemetry for treatment of the following conditions: Alcohol detox: During her hospital stay her CIWA score were low, she was put on IV Ativan as needed, which she did not require, in addition to p.o. Ativan. Her folic acid and vitamin B12 were repleted #Dysphagia, anorexia antral gastritis, with erosion and aphthous ulceration, nodular gastritis, presbyesophagus: Patient had upper EGD which showed antral gastritis with erosions and aphthous ulcer in addition to nodular gastritis and Presbyesophagus, which explained her symptoms on admission of abdominal pain and nausea. She was initially treated with IV Protonix which was switch it to p.o.which the patient was discharged on. She was also treated with as needed Zofran and IV fluid hydration. GI were on board and the patient was given outpatient referral to follow-up. Will need to follow-up on pathology results which were taken during EGD Hypomagnesemia, hypophosphatemia -Possibly due to alcohol abuse -On admission her magnesium was 1.1 and phosphorus was 2 -They were repeated History of smoking: -Smoking cessation counselling. -Nicotine patch as needed History of hypertension and hyperlipidemia: -Patient is not taking any medication for HTN and HLD During hospitalization her blood pressure was stable, the patient did not have PCP, she was given referral to [facility] physician for further follow-up. DVT prophylaxis: Mechanical and subcutaneous heparin CODE STATUS: DNR/DNI Allergies: Coded Allergies: No Known Allergies (11/28/17) Disposition Summary Disposition Principal Diagnosis: Gastric ulcer Additional Diagnosis: Electrolyte imbalance, transaminitis, history of alcohol abuse Discharge Disposition: home or self care Discharge Instructions General Discharge Information Code Status: Do Not Resucitate/Intubat Patient's Diet: Heart healthy diet Patient's Activity: As tolerated Follow-Up Instructions/Appts: -Please follow-up with your primary care physician within 1 week after discharge -Please follow up with GI Dr. Landis within 2 weeks after discharge -Please call Dr. Landis's office immediately for any nausea, vomiting, abdominal pain, fever, chills or any change in her clinical condition -You will be contacted by Dr. Landis's office regarding the pathology results of upper endoscopy -Please take Protonix 40 mg every morning 30-45 minutes before breakfast Medications at Discharge Discharge Medications: Continue taking these medications: Multiple Vitamin (Multivitamins) 1 EACH TABLET 1 Tablet ORAL DAILY Comments: Last Taken: 12/01/17 Time: 8:00 AM Oxycodone HCl/Acetaminophen (Percocet 5-325 MG Tablet) 5 MG-325 MG TABLET 1 Tablet ORAL EVERY 12 HOURS as needed for Abdominal pain Qty = 10 Comments: NOT GIVEN Folic Acid (Folic Acid) 1 MG TABLET 1 Tablet ORAL DAILY Comments: Last Taken: 12/01/17 Time: 8:00 AM Pantoprazole Sodium (Pantoprazole Sodium) 40 MG TABLET. 1 Tablet ORAL DAILY Qty = 30 Instructions: PLEASE TAKE THE MEDICATION EVERY MORNING 30-45 MINS BEFORE BREAKFAST Comments: Last Taken: 12/01/17 Time: 8:00 AM IV DOSE GIVEN This prescription has been renewed Start taking the following new medications: Nystatin (Nystatin) 100,000 UNIT/GRAM CREAM..G. 1 Application On the skin TWICE DAILY Qty = 10 No Refills Instructions: . Comments: Last Taken: 12/01/17 Time: 8:00 AM The following medications have been changed: Old: Hyoscyamine (Levsin) 0.5 MG/ML AMPUL 0.125 Milligram ORAL EVERY 4 HOURS NEEDED as needed for GI UPSET Qty = 60 New: Hyoscyamine (Levsin) 0.5 MG/ML AMPUL 0.125 Milligram ORAL EVERY 4 HOURS NEEDED as needed for GI UPSET Qty = 60 Instructions: .. Comments: NOT GIVEN Copies To: Oksana ATKINSON,Oksana Attending Review Statement Documenting Attending: Yasmeen Bojorquez MD Other Findings: Patient with peptic ucler disease. EGD suggestive of superficial ulcers. Biopsy taken. Needs to take PPI PO daily and follow up with gastroenetrology in 2 weeks for biopsy results. She is tolerating her diet and medically stbale for discharge. She should avoid NSAIDS in future. Documenting Attending: Yasmeen Bojorquez MD Other Findings: Patient with peptic ucler disease. EGD suggestive of superficial ulcers. Biopsy taken. Needs to take PPI PO daily and follow up with gastroenetrology in 2 weeks for biopsy results. She is tolerating her diet and medically stbale for discharge. She should avoid NSAIDS in future.
--- NOTE | 2017-12-01 11:45 | PN- Gastroenterology ---
Assessment/Plan GI Assessment/Recommendations: ASSESSMENT: 1. Dysphagia 2. Anorexia 3. Alcohol abuse RECOMMENDATIONS: 1. Results of EGD discussed with patient 2. Pathology still pending 3. Patient given my contact information and asked to follow-up with me as an outpatient for further therapy of dysphagia and other gastrointestinal problems. 4. Patient stable for discharge to home. Subjective Subjective: Patient tolerating diet. Has had no further episodes of dysphagia. Denies nausea or vomiting. His moving bowels well. Objective Vital Signs and I&Os Vital Signs Date Time Temp Pulse Resp B/P B/P Pulse O2 O2 Flow FiO2 Mean Ox Delivery Rate 12/01 622 98.3 75 18 110/60 95 Room Air 11/30 2214 98.1 78 17 110/72 98 11/30 1600 97.7 90 18 108/54 11/30 1507 97.5 79 18 108/54 100 11/30 1400 80 Intake & Output 12/01 1600 12/01 0400 11/30 1600 11/30 0400 11/29 1600 11/29 0400 Intake Total 240 0980 070 4537 720 Output Total 400 Balance 240 4693 346 5976 720 Intake, IV 0788 009 3601 500 Intake, Oral 240 360 180 570 220 Number 1 1 Bowel Movements Output, Urine 400 Patient 111 lb 117 lb 105 lb 105 lb Weight Weight Bed scale Bed scale Bed scale Measurement Method Physical Exam General Appearance: well developed/nourished, no apparent distress, comfortable Respiratory: normal breath sounds, lungs clear Cardiovascular: regular rate/rhythm Abdomen: normal bowel sounds, soft, non-tender, no organomegaly Neurologic/Psychiatric: alert, oriented x 3 Current Medications: Current Medications Sig/Ella Start time Last Medication Dose Route Stop Time Status Admin Acetaminophen 1,000 MG Q6P PRN 11/28 2129 AC 11/29 IV 2048 Chlorhexidine 1 GM .STK-MED ONE 11/30 1225 DC Gluconate TOP 11/30 1226 Enoxaparin Sodium 40 MG DAILY 11/29 899 AC 12/01 SC 0810 Folic Acid 1 MG DAILY 11/29 09 AC 12/01 PO 0809 Lorazepam 1 MG BID 11/28 2121 DC 12/01 PO 0815 Melatonin 5 MG AT BEDTIME 11/29 2100 AC 11/30 PO 2017 Multivitamins 1 TAB DAILY 11/29 899 AC 12/01 PO 08 Nicotine 7 MG Q24 11/29 899 AC 11/30 TOP 0801 Nystatin 1 SHANTEL BID 11/29 1700 AC 12/01 TOP 0812 Nystatin 1 SHANTEL BID 11/29 0900 AC 12/01 TOP 0812 Ondansetron HCl 4 MG Q8P PRN 11/28 2130 AC IV Oxycodone/ 1 TAB Q12 PRN 11/28 2130 AC Acetaminophen PO Pantoprazole Sodium 40 MG BID 11/29 09 AC 12/01 IV 0805 Potassium Chloride 40 MEQ Q10H 11/28 2129 DC 11/30 Sodium Chloride 1,000 ML IV 0408 Thiamine HCl 100 MG DAILY 11/28 2200 AC 12/01 PO 0809 Results Pertinent Lab Results: Laboratory Tests 11/30 11/30 11/29 0912 0642 1732 Chemistry Sodium (137 - 145 mmol/L) 143 Potassium (3.5 - 5.1 mmol/L) 5.0 Chloride (98 - 107 mmol/L) 115 H Carbon Dioxide (22 - 30 mmol/L) 20 L Anion Gap (5 - 16) 7 BUN (7 - 17 mg/dL) 3 L Creatinine (0.5 - 1.0 mg/dL) 0.6 Estimated GFR (>60 ml/min) > 60 BUN/Creatinine Ratio (7 - 25 %) 5.0 L Phosphorus (2.5 - 4.5 mg/dL) 2.2 L Coagulation PT (9.4 - 12.5 SEC) 15.2 H INR (0.90 - 1.19) 1.39 H Hematology CBC w Diff NO MAN DIFF REQ WBC (4.8 - 10.8 /CUMM) 4.6 L RBC (4.20 - 5.40 /CUMM) 3.27 L Hgb (12.0 - 16.0 G/DL) 10.9 L Hct (37 - 47 %) 32.2 L MCV (81.0 - 99.0 FL) 98.7 MCH (27.0 - 31.0 PG) 33.2 H MCHC (33.0 - 37.0 G/DL) 33.7 RDW (11.5 - 14.5 %) 14.9 H Plt Count (130 - 400 /CUMM) 175 MPV (7.4 - 10.4 FL) 8.9 Gran % (42.2 - 75.2 %) 71.6 Lymphocytes % (20.5 - 51.1 %) 16.3 L Monocytes % (1.7 - 9.3 %) 8.5 Eosinophils % (0 - 5 %) 3.0 Basophils % (0.0 - 2.0 %) 0.6 Absolute Granulocytes (1.4 - 6.5 /CUMM) 3.3 Absolute Lymphocytes (1.2 - 3.4 /CUMM) 0.7 L Absolute Monocytes (0.10 - 0.60 /CUMM) 0.4 Absolute Eosinophils (0.0 - 0.7 /CUMM) 0.1 Absolute Basophils (0.0 - 0.2 /CUMM) 0 11/29 11/29 0920 0640 Chemistry Sodium (137 - 145 mmol/L) 138 Potassium (3.5 - 5.1 mmol/L) 4.3 Chloride (98 - 107 mmol/L) 109 H Carbon Dioxide (22 - 30 mmol/L) 19 L Anion Gap (5 - 16) 11 BUN (7 - 17 mg/dL) 7 Creatinine (0.5 - 1.0 mg/dL) 0.6 Estimated GFR (>60 ml/min) > 60 BUN/Creatinine Ratio (7 - 25 %) 11.7 Calcium (8.4 - 10.2 mg/dL) 7.9 L Phosphorus (2.5 - 4.5 mg/dL) 2.0 L Magnesium (1.6 - 2.3 mg/dL) 2.0 AST (14 - 36 U/L) 49 H ALT (9 - 52 U/L) 37 Albumin (3.5 - 5.0 g/dL) 2.6 L Hematology CBC w Diff NO MAN DIFF REQ WBC (4.8 - 10.8 /CUMM) 4.7 L RBC (4.20 - 5.40 /CUMM) 3.22 L Hgb (12.0 - 16.0 G/DL) 10.7 L Hct (37 - 47 %) 31.2 L MCV (81.0 - 99.0 FL) 97.0 MCH (27.0 - 31.0 PG) 33.2 H MCHC (33.0 - 37.0 G/DL) 34.2 RDW (11.5 - 14.5 %) 14.4 Plt Count (130 - 400 /CUMM) 199 MPV (7.4 - 10.4 FL) 8.4 Gran % (42.2 - 75.2 %) 61.8 Lymphocytes % (20.5 - 51.1 %) 22.5 Monocytes % (1.7 - 9.3 %) 10.7 H Eosinophils % (0 - 5 %) 4.1 Basophils % (0.0 - 2.0 %) 0.9 Absolute Granulocytes (1.4 - 6.5 /CUMM) 2.9 Absolute Lymphocytes (1.2 - 3.4 /CUMM) 1.1 L Absolute Monocytes (0.10 - 0.60 /CUMM) 0.5 Absolute Eosinophils (0.0 - 0.7 /CUMM) 0.2 Absolute Basophils (0.0 - 0.2 /CUMM) 0 Urines Urine Color (YEL,AMB,STR) YEL Urine Clarity (CLEAR) HAZY H Urine pH (5.0 - 8.0) 6.5 Ur Specific [place] (1.001 - 1.035) 1.010 Urine Protein (NEG,<30 MG/DL) TRACE H Urine Ketones (NEG) TRACE H Urine Nitrite (NEG) NEG Urine Bilirubin (NEG) NEG@ICTO Urine Urobilinogen (0.1 - 1.0 EU/dl) 1.0 Ur Leukocyte Esterase (NEG) NEG Ur Microscopic SEDIMENT EXAMINED Urine RBC (0 - 5 /HPF) RARE Urine WBC (0 - 2 /HPF) RARE Ur Epithelial Cells (NONE,FEW) MANY H Urine Bacteria (NEG/NONE) FEW H Micro UA Comment BUDDING YEAST H Urine Hemoglobin (NEG) NEG Urine Glucose (N MG/DL) NEG 11/29 Chemistry Sodium (137 - 145 mmol/L) 137 Potassium (3.5 - 5.1 mmol/L) 4.3 Chloride (98 - 107 mmol/L) 108 H Carbon Dioxide (22 - 30 mmol/L) 18 L Anion Gap (5 - 16) 12 BUN (7 - 17 mg/dL) 7 Creatinine (0.5 - 1.0 mg/dL) 0.7 Estimated GFR (>60 ml/min) > 60 BUN/Creatinine Ratio (7 - 25 %) 10.0 Lactic Acid (0.7 - 2.1 mmol/L) Cancelled 1.1 Magnesium (1.6 - 2.3 mg/dL) 1.6 06/23 1747 Chemistry Sodium (137 - 145 mmol/L) 140 Potassium (3.5 - 5.1 mmol/L) 2.6 *L Chloride (98 - 107 mmol/L) 99 Carbon Dioxide (22 - 30 mmol/L) 18 L Anion Gap (5 - 16) 23 H BUN (7 - 17 mg/dL) 7 Creatinine (0.5 - 1.0 mg/dL) 0.7 Estimated GFR (>60 ml/min) > 60 BUN/Creatinine Ratio (7 - 25 %) 10.0 Glucose (65 - 99 mg/dL) 103 H Calcium (8.4 - 10.2 mg/dL) 9.1 Phosphorus (2.5 - 4.5 mg/dL) 3.4 Magnesium (1.6 - 2.3 mg/dL) 1.1 L Total Bilirubin (0.2 - 1.3 mg/dL) 0.8 AST (14 - 36 U/L) 69 H ALT (9 - 52 U/L) 42 Alkaline Phosphatase (<127 U/L) 131 H Troponin I (< 0.11 ng/ml) < 0.01 Total Protein (6.3 - 8.2 g/dL) 7.0 Albumin (3.5 - 5.0 g/dL) 4.0 Globulin (1.9 - 4.2 gm/dL) 3.0 Albumin/Globulin Ratio (1.1 - 2.2 %) 1.3 Triglycerides (<150 mg/dL) 136 Cholesterol (<200 MG/DL) 156 LDL Cholesterol, Calc (65 - 129 mg/dL) 63 L HDL Cholesterol (40 - 60 mg/dL) 66 H Cholesterol/HDL Ratio (0.00 - 4.23 %) 2.4 Lipase (23 - 300 U/L) < 10 L Coagulation D-Dimer High Sensitivty (0 - 243 ng/ml) < 200 Hematology CBC w Diff NO MAN DIFF REQ WBC (4.8 - 10.8 /CUMM) 6.5 RBC (4.20 - 5.40 /CUMM) 3.98 L Hgb (12.0 - 16.0 G/DL) 13.0 Hct (37 - 47 %) 39.1 MCV (81.0 - 99.0 FL) 98.2 MCH (27.0 - 31.0 PG) 32.8 H MCHC (33.0 - 37.0 G/DL) 33.4 RDW (11.5 - 14.5 %) 15.0 H Plt Count (130 - 400 /CUMM) 266 MPV (7.4 - 10.4 FL) 7.6 Gran % (42.2 - 75.2 %) 70.6 Lymphocytes % (20.5 - 51.1 %) 17.1 L Monocytes % (1.7 - 9.3 %) 8.6 Eosinophils % (0 - 5 %) 2.6 Basophils % (0.0 - 2.0 %) 1.1 Absolute Granulocytes (1.4 - 6.5 /CUMM) 4.6 Absolute Lymphocytes (1.2 - 3.4 /CUMM) 1.1 L Absolute Monocytes (0.10 - 0.60 /CUMM) 0.6 Absolute Eosinophils (0.0 - 0.7 /CUMM) 0.2 Absolute Basophils (0.0 - 0.2 /CUMM) 0.1 Toxicology Serum Alcohol (<10 MG/DL) < 10.0
== END 2017-12-01 12:45 | DRG 384 ==
LOC: ERH 17:07 → 1NO 20:13 → ERHI 20:13 → ENRESERV 21:35 → ENTRNSPT 22:26 → EDTRNSPTSTS 22:29 → 1NO 22:37 → CMPTRNSPT 22:55 → 1NO 11-30 08:08 → ENPENDDIS 12-01 11:20 → 1NO 12-01 12:45
PROVIDERS: Internal Medicine Interventional Cardiology; Physician Assistant; Student in an Organized Health Care Education/Training Program
PROC: 0DD68ZX Extraction of Stomach, Via Natural or Artificial Opening Endoscopic, Diagnostic (ICD-10-PCS; principal; 2017-11-30)
DX: K25.9 Gastric ulcer, unspecified as acute or chronic, without hemorrhage or perforation (principal); E46 Unspecified protein-calorie malnutrition; Z68.1 Body mass index [BMI] 19.9 or less, adult; E87.2 Acidosis; K29.70 Gastritis, unspecified, without bleeding; E87.6 Hypokalemia; K22.8 Other specified diseases of esophagus; I10 Essential (primary) hypertension; K21.9 Gastro-esophageal reflux disease without esophagitis; F10.10 Alcohol abuse, uncomplicated; Y90.0 Blood alcohol level of less than 20 mg/100 ml; E86.0 Dehydration; R13.10 Dysphagia, unspecified; E83.42 Hypomagnesemia; R74.0 Nonspecific elevation of levels of transaminase and lactic acid dehydrogenase [LDH]; R11.2 Nausea with vomiting, unspecified; R10.9 Unspecified abdominal pain; K76.0 Fatty (change of) liver, not elsewhere classified; Z91.14 Patient's other noncompliance with medication regimen; R13.14 Dysphagia, pharyngoesophageal phase; E78.5 Hyperlipidemia, unspecified; F17.210 Nicotine dependence, cigarettes, uncomplicated; Z98.51 Tubal ligation status; Z66 Do not resuscitate; K27.9 Peptic ulcer, site unspecified, unspecified as acute or chronic, without hemorrhage or perforation
CPT/HCPCS: 1NSP; 36415; 36592; 71046; 74177; 81001; 82436; 88305; 88312; 93005; 93010; 96361; 96365; 96366; 96374; 96375; 99291; G0480; J0131; J1650; J1885; J2405; J3490; J7060